=== PATIENT | female | born 1980 | race Caucasian/White ===

== ENCOUNTER → 2019-12-28 | Outpatient (CLI) | payer OTHER ==
[2019-12-28 12:12] LABS: BASO % 0.5 % (0.0-1.0); EOS # 0.1 10^3/uL (0.0-0.5); HEMATOCRIT 34.4 % (36.0-47.0); HEMOGLOBIN 10.6 g/dl (12.0-15.5); LYMPH # 1.7 10^3/uL (1.5-5.0); LYMPH % 20.4 % (24.0-44.0); MEAN CORPUSCULAR HEMOGLOBIN 19.5 pg (27.0-33.0); MEAN CORPUSCULAR HGB CONC 30.8 g/dl (32.0-36.5); MEAN CORPUSCULAR VOLUME 63.2 fl (80.0-96.0); MONO # 0.6 10^3/uL (0.0-0.8); MONO % 7.6 % (0.0-5.0); NEUTROPHILS # 5.9 10^3/uL (1.5-8.5); NEUTROPHILS % 70.1 % (36.0-66.0); PLATELET COUNT, AUTOMATED 201 10^3/uL (150-450); RED BLOOD COUNT 5.44 10^6/uL (4.00-5.40); WHITE BLOOD COUNT 8.4 10^3/uL (4.0-10.0)
[2019-12-28 12:15] LABS: ALBUMIN 3.6 GM/DL (3.2-5.2); ALT/SGPT 21 U/L (12-78); BILIRUBIN,TOTAL 0.5 MG/DL (0.2-1.0); BLOOD UREA NITROGEN 14 MG/DL (7-18); CALCIUM LEVEL 7.9 MG/DL (8.5-10.1); CARBON DIOXIDE LEVEL 29 MEQ/L (21-32); CHLORIDE LEVEL 105 MEQ/L (98-107); CREATININE FOR GFR 0.69 MG/DL (0.55-1.30); GLOMERULAR FILTRATION RATE > 60.0 (>58); GLUCOSE, FASTING 90 MG/DL (70-100); POTASSIUM SERUM 4.1 MEQ/L (3.5-5.1); SODIUM LEVEL 138 MEQ/L (136-145)
== END ==
LOC: M LAB 11:47
PROVIDERS: ATTEND Internal Medicine Gastroenterology
DX: K62.5 Hemorrhage of anus and rectum (principal)

== ENCOUNTER → 2020-01-05 | Outpatient (REF) | payer OTHER ==
[2020-01-05 16:35] LABS: INR 1.04; PROTHROMBIN TIME 13.3 SECONDS (11.8-14.0)
== END ==
LOC: M LAB REF 15:53
PROVIDERS: ATTEND Internal Medicine Gastroenterology
DX: K62.5 Hemorrhage of anus and rectum (principal)

== ENCOUNTER → 2020-01-14 | Outpatient (CLI) | payer OTHER ==
[~2020-01-14] MED LIST: CLAR10CA3 PO; NO ITAB PO
== END ==
LOC: M LABSMTC 09:42
PROVIDERS: ATTEND Anesthesiology
DX: Z01.812 Encounter for preprocedural laboratory examination (principal); Z11.59 Encounter for screening for other viral diseases
CPT/HCPCS: C9803; U0002

== ENCOUNTER 2020-01-17 08:53 | Day surgery (SDC) | payer OTHER ==
[~2020-01-17] VITALS: Ht 154.9 cm; Wt 68.5 kg
[~2020-01-17 08:53] MED LIST changes: +NS 1,000 ML IV ONE
[2020-01-17] MEDS ORDERED: propofoL 200 MG/20 ML VIAL As Ordered ONE (09:22)
[2020-01-17] MEDS ORDERED: LIDOCAINE 2% 100MG/5ML SDV (FOR ANES.) As Ordered ONE (09:23)
[2020-01-17] MEDS ORDERED: fentaNYL 100 MCG/2 ML INJECTION (J3010) As Ordered ONE (09:24)
--- NOTE | 2020-01-17 10:08 | ROOR ---
Patient Name: Kathy Johnson Procedure Date: 01/17/2020 9:47 AM Date of : 1980 Age: 39 Room: [facility] Gender: Female Note Status: Finalized Procedure: Upper GI endoscopy Indications: Hematochezia, Endoscopy to assess diarrhea in patient suspected of having disease of the small-bowel Providers: Huy LEZAMA MD Referring MD: Helena Peoples NP Requesting Provider: Medicines: Monitored Anesthesia Care Complications: No immediate complications. Procedure: Pre-Anesthesia Assessment: - The heart rate, respiratory rate, oxygen saturations, blood pressure, adequacy of pulmonary ventilation, and response to care were monitored throughout the procedure. The Endoscope was introduced through the mouth, and advanced to the second part of duodenum. The upper GI endoscopy was accomplished without difficulty. The patient tolerated the procedure well. Findings: The esophagus was normal. The stomach was normal. The examined duodenum was normal. Biopsies for histology were taken with a cold forceps in the second portion of the duodenum and in the third portion of the duodenum for evaluation of celiac disease. Impression: - Normal esophagus. - Normal stomach. - Normal examined duodenum. - Biopsies were taken with a cold forceps for evaluation of celiac disease. Recommendation: - Await pathology results. - Telephone endoscopist for pathology results in 2 weeks. Huy Lezama MD Huy LEZAMA MD 01/17/2020 10:07:46 AM Electronically signed by Huy LEZAMA MD Number of Addenda: 0 Note Initiated On: 01/17/2020 9:47 AM Estimated Blood Loss: Estimated blood loss: none.
--- NOTE | 2020-01-17 10:36 | ROOR ---
Patient Name: Kathy Johnson Procedure Date: 01/17/2020 9:49 AM Date of : 1980 Age: 39 Room: [facility] Gender: Female Note Status: Finalized Procedure: Colonoscopy Indications: Clinically significant diarrhea of unexplained origin, Hematochezia Providers: Huy LEZAMA MD Referring MD: Helena Peoples NP Requesting Provider: Medicines: Monitored Anesthesia Care Complications: No immediate complications. Procedure: Pre-Anesthesia Assessment: - The heart rate, respiratory rate, oxygen saturations, blood pressure, adequacy of pulmonary ventilation, and response to care were monitored throughout the procedure. The Colonoscope was introduced through the anus and advanced to 10 cm into the ileum. The colonoscopy was performed without difficulty. The patient tolerated the procedure well. The quality of the bowel preparation was good. Findings: The perianal and digital rectal examinations were normal. The terminal ileum appeared normal. Segmental mild inflammation characterized by congestion (edema), erythema and granularity was found from sigmoid to anus. Biopsies were taken with a cold forceps for histology. A 5 mm polyp was found in the rectum. The polyp was sessile. The polyp was removed with a cold snare. Resection and retrieval were complete. The exam was otherwise without abnormality on direct and retroflexion views. Impression: - Mild continuous inflammation was found from anus to mid sigmoid. (0 to 28 cm from verge) secondary to proctosigmoid colitis. Biopsied. - One 5 mm polyp in the rectum, removed with a cold snare. Resected and retrieved. - The colon examination was otherwise normal on direct and retroflexion views. - The examined portion of the ileum was normal. Recommendation: - Telephone endoscopist for pathology results in 2 weeks. - Await pathology results. Huy Lezama MD Huy LEZAMA MD 01/17/2020 10:36:09 AM Electronically signed by Huy LEZAMA MD Number of Addenda: 0 Note Initiated On: 01/17/2020 9:49 AM Estimated Blood Loss: Estimated blood loss: none.
[2020-01-17 10:44] VITALS: BP 98/66
== END 2020-01-17 10:44 | disposition home or self-care (01) ==
LOC: M OPP 08:53
PROVIDERS: ATTEND Internal Medicine Gastroenterology
DX: K63.89 Other specified diseases of intestine (principal); K62.1 Rectal polyp; K92.1 Melena; R19.7 Diarrhea, unspecified; Z91.041 Radiographic dye allergy status
CPT/HCPCS: 43239; 45380; 45385; 81025; 88305; J3010

== ENCOUNTER → 2020-02-10 | Outpatient (REF) | payer OTHER ==
[~2020-02-10] MED LIST changes: -NS 1,000 ML IV ONE
[2020-02-10 17:15] LABS: BASO # 0.1 10^3/uL (0.0-0.2); BASO % 0.6 % (0.0-1.0); EOS # 0.3 10^3/uL (0.0-0.5); EOS % 2.8 % (0.0-3.0); HEMOGLOBIN 10.2 g/dl (12.0-15.5); LYMPH # 2.2 10^3/uL (1.5-5.0); LYMPH % 23.2 % (24.0-44.0); MEAN CORPUSCULAR HEMOGLOBIN 19.9 pg (27.0-33.0); MEAN CORPUSCULAR HGB CONC 30.9 g/dl (32.0-36.5); MEAN CORPUSCULAR VOLUME 64.3 fl (80.0-96.0); MONO # 0.6 10^3/uL (0.0-0.8); MONO % 6.3 % (0.0-5.0); NEUTROPHILS # 6.4 10^3/uL (1.5-8.5); NEUTROPHILS % 66.7 % (36.0-66.0); PLATELET COUNT, AUTOMATED 223 10^3/uL (150-450); RED BLOOD COUNT 5.13 10^6/uL (4.00-5.40); WHITE BLOOD COUNT 9.6 10^3/uL (4.0-10.0)
[2020-02-10 17:51] LABS: ALBUMIN 3.4 GM/DL (3.2-5.2); ALT/SGPT 30 U/L (12-78); BILIRUBIN,TOTAL 0.7 MG/DL (0.2-1.0); BLOOD UREA NITROGEN 15 MG/DL (7-18); CALCIUM LEVEL 8.3 MG/DL (8.5-10.1); CARBON DIOXIDE LEVEL 29 MEQ/L (21-32); CHLORIDE LEVEL 107 MEQ/L (98-107); CREATININE FOR GFR 0.76 MG/DL (0.55-1.30); GLOMERULAR FILTRATION RATE > 60.0 (>58); GLUCOSE, FASTING 65 MG/DL (70-100); POTASSIUM SERUM 4.1 MEQ/L (3.5-5.1); SODIUM LEVEL 141 MEQ/L (136-145); TOTAL PROTEIN 6.6 GM/DL (6.4-8.2)
== END ==
LOC: M LABDRAWC 16:02
PROVIDERS: ATTEND Internal Medicine Gastroenterology
DX: K51.919 Ulcerative colitis, unspecified with unspecified complications (principal)

== ENCOUNTER → 2020-02-20 | Outpatient (REF) | payer OTHER ==
[~2020-02-20] MED LIST changes: +ACET-907 PO; +BALS75CA PO; +CEFD1CAP8 PO; +DICY1CAP8 PO; +FLAG500T PO; +FLON1SPR; +K-TA10TA2 PO; +LEVOTAB10 PO; +PANT40TA29 PO; +PRED10TA2 PO; +PRED20TA PO; +SUMA25TA3 PO
[2020-02-20 17:34] LABS: BASO % 0.4 % (0.0-1.0); EOS # 0.3 10^3/uL (0.0-0.5); EOS % 2.7 % (0.0-3.0); HEMATOCRIT 31.1 % (36.0-47.0); HEMOGLOBIN 9.5 g/dl (12.0-15.5); LYMPH # 2.2 10^3/uL (1.5-5.0); LYMPH % 20.5 % (24.0-44.0); MEAN CORPUSCULAR HEMOGLOBIN 19.5 pg (27.0-33.0); MEAN CORPUSCULAR HGB CONC 30.5 g/dl (32.0-36.5); MEAN CORPUSCULAR VOLUME 63.9 fl (80.0-96.0); MONO # 0.7 10^3/uL (0.0-0.8); MONO % 6.3 % (0.0-5.0); NEUTROPHILS # 7.4 10^3/uL (1.5-8.5); NEUTROPHILS % 69.6 % (36.0-66.0); PLATELET COUNT, AUTOMATED 229 10^3/uL (150-450); RED BLOOD COUNT 4.87 10^6/uL (4.00-5.40); WHITE BLOOD COUNT 10.7 10^3/uL (4.0-10.0)
[2020-02-20 17:36] LABS: ALBUMIN 3.3 GM/DL (3.2-5.2); ALT/SGPT 34 U/L (12-78); BILIRUBIN,TOTAL 0.7 MG/DL (0.2-1.0); BLOOD UREA NITROGEN 13 MG/DL (7-18); CALCIUM LEVEL 8.6 MG/DL (8.5-10.1); CARBON DIOXIDE LEVEL 28 MEQ/L (21-32); CHLORIDE LEVEL 104 MEQ/L (98-107); CREATININE FOR GFR 0.65 MG/DL (0.55-1.30); GLOMERULAR FILTRATION RATE > 60.0 (>58); GLUCOSE, FASTING 84 MG/DL (70-100); POTASSIUM SERUM 3.4 MEQ/L (3.5-5.1); SODIUM LEVEL 138 MEQ/L (136-145); TOTAL PROTEIN 6.7 GM/DL (6.4-8.2)
[2020-02-23 16:08] LABS: ANCA-ATYPICAL <1:20 titer (Neg:<1:20); CYTOPLASMIC NEUTROP AB ANCA-C <1:20 titer (Neg:<1:20); PERINUCLEAR AB ANCA-P <1:20 titer (Neg:<1:20)
== END ==
LOC: M LABDRAWC 16:11
PROVIDERS: ATTEND Internal Medicine Gastroenterology
DX: K51.318 Ulcerative (chronic) rectosigmoiditis with other complication (principal)

== ENCOUNTER 2020-02-21 16:53 | Emergency (ER) | payer OTHER ==
[~2020-02-21] VITALS: Ht 154.9 cm; Wt 68.9 kg
[~2020-02-21 16:53] MED LIST changes: -ACET-907 PO; -BALS75CA PO; -CEFD1CAP8 PO; -DICY1CAP8 PO; -FLAG500T PO; -FLON1SPR; -K-TA10TA2 PO; -LEVOTAB10 PO; -PANT40TA29 PO; -PRED10TA2 PO; -PRED20TA PO; -SUMA25TA3 PO
[2020-02-21] MEDS ORDERED: NS 1,000 ML IV ONE (17:15)
[2020-02-21 17:40] LABS: BASO % 0.3 % (0.0-1.0); EOS # 0.2 10^3/uL (0.0-0.5); HEMATOCRIT 31.7 % (36.0-47.0); HEMOGLOBIN 9.8 g/dl (12.0-15.5); LYMPH # 1.8 10^3/uL (1.5-5.0); LYMPH % 16.6 % (24.0-44.0); MEAN CORPUSCULAR HEMOGLOBIN 19.5 pg (27.0-33.0); MEAN CORPUSCULAR HGB CONC 30.9 g/dl (32.0-36.5); MONO # 0.8 10^3/uL (0.0-0.8); MONO % 7.1 % (0.0-5.0); NEUTROPHILS # 7.9 10^3/uL (1.5-8.5); NEUTROPHILS % 73.6 % (36.0-66.0); PLATELET COUNT, AUTOMATED 237 10^3/uL (150-450); RED BLOOD COUNT 5.03 10^6/uL (4.00-5.40); WHITE BLOOD COUNT 10.8 10^3/uL (4.0-10.0)
[2020-02-21 18:02] LABS: ALBUMIN 3.4 GM/DL (3.2-5.2); ALT/SGPT 31 U/L (12-78); BILIRUBIN,DIRECT 0.2 MG/DL (0.0-0.2); BILIRUBIN,TOTAL 0.5 MG/DL (0.2-1.0); CK-MB VALUE MASS < 1.0 NG/ML (<3.6); CPK CREATINE PHOSPHOKINASE 48 U/L (26-192); FREE T4 1.01 NG/DL (0.76-1.46); LIPASE 169 U/L (73-393); MB/CK RELATIVE INDEX 2.08 (< OR =4); NT-PRO BNP 68 PG/ML (<125); TOTAL PROTEIN 7.2 GM/DL (6.4-8.2); TROPONIN I < 0.02 NG/ML (< 0.10)
[2020-02-21 18:07] LABS: INR 1.1; PROTHROMBIN TIME 13.9 SECONDS (11.8-14.0)
[2020-02-21 18:08] LABS: PARTIAL THROMBOPLASTIN TIME 35.6 SECONDS (25.0-38.4)
[2020-02-21 18:10] LABS: D-DIMER QUANT 1688.85 ng/ml (<500)
[2020-02-21] MEDS ORDERED: ISOVUE-370 76% 100ML VIAL As Ordered ONE (18:23)
--- NOTE | 2020-02-21 19:00 | REPVR ---
PROCEDURE INFORMATION: Exam: CT Angiography Chest With Contrast Exam date and time: 02/21/2020 6:28 PM Age: 39 years old Clinical indication: Shortness of breath; Additional info: SOB, elevated dimer, RO pe TECHNIQUE: Imaging protocol: Computed tomographic angiography of the chest with intravenous contrast. 3D rendering: MIP and/or 3D reconstructed images were created by the technologist. Radiation optimization: All CT scans at this facility use at least one of these dose optimization techniques: automated exposure control; mA and/or kV adjustment per patient size (includes targeted exams where dose is matched to clinical indication); or iterative reconstruction. Contrast material: ISOVUE 370; Contrast volume: 75 ml; Contrast route: INTRAVENOUS (IV); COMPARISON: CR Chest, 2 view PA, Lat 02/21/2020 5:57 PM FINDINGS: Pulmonary arteries: No CT evidence of acute pulmonary emboli. Aorta: No CT evidence of acute aortic dissection, aneurysm or acute intramural thoracic aortic hematoma. Lungs: Both lungs are well-aerated. No evidence of acute pneumonia or pneumothorax. Pleural space: No pleural effusions. Heart: The heart size is normal. No evidence of coronary artery calcification. Lymph nodes: No significant mediastinal lymphadenopathy. Bones/joints: Unremarkable. No acute fracture. Soft tissues: Unremarkable. IMPRESSION: 1. No CT evidence of acute pulmonary emboli. 2. No CT evidence of acute aortic dissection, aneurysm or acute intramural thoracic aortic hematoma. 3. Both lungs are well-aerated. No evidence of acute pneumonia or pneumothorax. 4. The heart size is normal. No evidence of coronary artery calcification. Electronically signed by: Jimmy Victoria On 02/21/2020 18:59:38 PM
[2020-02-21 19:35] VITALS: BP 106/73
--- NOTE | 2020-02-21 22:55 | REP ---
TWO-VIEW CHEST: REASON: Chest pain. COMPARISON: No priors. FINDINGS: The superior mediastinal structures are midline. The cardiac silhouette is unremarkable in size, shape, and position. The diaphragmatic surfaces of the lungs are regular, and the costophrenic angles are clear. The pulmonary sheth are clear. The imaged osseous structures are intact. IMPRESSION: There is no acute cardiopulmonary disease. Electronically Signed by Demetrio Priest DO 02/22/2020 01:23 P
--- NOTE | 2020-02-22 08:19 | ECGEPIP ---
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
== END 2020-02-21 19:37 | disposition home or self-care (01) ==
LOC: M ED 16:53
DX: R07.9 Chest pain, unspecified (principal); R00.0 Tachycardia, unspecified; Z79.899 Other long term (current) drug therapy; Z91.041 Radiographic dye allergy status
CPT/HCPCS: 71046; 71275; 80047; 80076; 82550; 82553; 83690; 83880; 84439; 84443; 84484; 84702; 85025; 85379; 85610; 85730; 93005; 96360; 99284; Q9967

== ENCOUNTER → 2020-02-24 | Outpatient (REF) | payer OTHER ==
[~2020-02-24] MED LIST changes: +ACET-907 PO; +BALS75CA PO; +CEFD1CAP8 PO; +DICY1CAP8 PO; +FLAG500T PO; +FLON1SPR; +K-TA10TA2 PO; +LEVOTAB10 PO; +PANT40TA29 PO; +PRED10TA2 PO; +PRED20TA PO; +SUMA25TA3 PO
[2020-02-24 11:58] LABS: BASO % 0.3 % (0.0-1.0); EOS # 0.3 10^3/uL (0.0-0.5); HEMATOCRIT 29.4 % (36.0-47.0); LYMPH # 1.7 10^3/uL (1.5-5.0); LYMPH % 17.5 % (24.0-44.0); MEAN CORPUSCULAR HEMOGLOBIN 19.4 pg (27.0-33.0); MEAN CORPUSCULAR HGB CONC 30.6 g/dl (32.0-36.5); MEAN CORPUSCULAR VOLUME 63.4 fl (80.0-96.0); MONO # 0.7 10^3/uL (0.0-0.8); MONO % 7.5 % (0.0-5.0); NEUTROPHILS # 6.8 10^3/uL (1.5-8.5); NEUTROPHILS % 71.3 % (36.0-66.0); PLATELET COUNT, AUTOMATED 228 10^3/uL (150-450); RED BLOOD COUNT 4.64 10^6/uL (4.00-5.40); WHITE BLOOD COUNT 9.5 10^3/uL (4.0-10.0)
== END ==
LOC: M SFHCCLAY 08:18
PROVIDERS: ATTEND Nurse Practitioner Family
DX: R10.32 Left lower quadrant pain (principal); K59.00 Constipation, unspecified

== ENCOUNTER → 2020-02-24 | Outpatient (CLI) | payer OTHER ==
--- NOTE | 2020-02-24 08:57 | REP ---
Acute abdominal series: Three views. History: Left lower quadrant abdomen pain. Comparison chest x-ray February 21, 2020. Findings: Upright chest radiograph shows no evidence of infiltrate. There is however slight blunting of the left lateral pleural angle and minimal discoid atelectasis is present in the left base along the diaphragm. No free subdiaphragmatic air is seen. The heart is not enlarged. Supine and upright views of the abdomen show a normal bowel gas pattern with air and stool in a nondistended colon. No small bowel dilation is seen. Psoas margins and flank stripes are intact. No mass, organomegaly, or pathologic calcification is seen. Impression: New blunting left lateral pleural angle and plate-like atelectasis left lung base. Otherwise negative abdominal series. Electronically Signed by Marco Jennings MD 02/24/2020 08:48 A
== END ==
LOC: M CLY 08:11
PROVIDERS: ATTEND Nurse Practitioner Family
DX: R10.32 Left lower quadrant pain (principal); J98.11 Atelectasis

== ENCOUNTER → 2020-02-27 | Outpatient (CLI) | payer OTHER ==
[~2020-02-27] MED LIST changes: -ACET-907 PO; -BALS75CA PO; -CEFD1CAP8 PO; -DICY1CAP8 PO; -FLAG500T PO; -FLON1SPR; -K-TA10TA2 PO; -LEVOTAB10 PO; -PANT40TA29 PO; -PRED10TA2 PO; -PRED20TA PO; -SUMA25TA3 PO
--- NOTE | 2020-02-27 13:24 | REP ---
MRCP: MRCP is accomplished utilizing multiple sequences which are heavily T2-weighted in the axial and coronal planes. MIP reconstruction images are performed. There is no intrahepatic or extrahepatic biliary dilatation. The intrahepatic and extrahepatic bile ducts are normal in caliber. Maximum diameter of the common bile duct is 5 mm. Gallbladder is unremarkable. There is no evidence of cholelithiasis or choledocholithiasis. Pancreatic duct is normal in caliber. The remaining visualized abdominal structures are unremarkable. I see no adenopathy or free fluid in the abdomen. . IMPRESSION: Unremarkable MRCP exam. Electronically Signed by Deion Dinero MD 02/27/2020 07:31 P
== END ==
LOC: M RAD 08:42
PROVIDERS: ATTEND Internal Medicine Gastroenterology
DX: K83.01 Primary sclerosing cholangitis (principal)

== ENCOUNTER → 2020-03-02 | Outpatient (REF) | payer OTHER ==
[2020-03-02 17:09] LABS: ALBUMIN 3.3 GM/DL (3.2-5.2); ALT/SGPT 14 U/L (12-78); BILIRUBIN,TOTAL 0.4 MG/DL (0.2-1.0); BLOOD UREA NITROGEN 13 MG/DL (7-18); CALCIUM LEVEL 8.5 MG/DL (8.5-10.1); CARBON DIOXIDE LEVEL 29 MEQ/L (21-32); CHLORIDE LEVEL 107 MEQ/L (98-107); CREATININE FOR GFR 0.65 MG/DL (0.55-1.30); GLOMERULAR FILTRATION RATE > 60.0 (>58); GLUCOSE, FASTING 88 MG/DL (70-100); POTASSIUM SERUM 3.7 MEQ/L (3.5-5.1); SODIUM LEVEL 138 MEQ/L (136-145); TOTAL PROTEIN 6.8 GM/DL (6.4-8.2)
[2020-03-02 17:15] LABS: CHOLESTEROL RISK RATIO 4.562 (<5); FREE T4 1.04 NG/DL (0.76-1.46); THYROID STIMULATING HORMONE 1.65 uIU/ML (0.358-3.740)
== END ==
LOC: M SFHCCLAY 09:49
PROVIDERS: ATTEND Nurse Practitioner Family
DX: K52.9 Noninfective gastroenteritis and colitis, unspecified (principal); G43.709 Chronic migraine without aura, not intractable, without status migrainosus; D56.3 Thalassemia minor; Z13.220 Encounter for screening for lipoid disorders

== ENCOUNTER → 2020-03-06 | Outpatient (REF) | payer OTHER ==
[~2020-03-06] MED LIST changes: +ACET-907 PO; +BALS75CA PO; +FLON1SPR; +LEVOTAB10 PO; +PRED20TA PO; +SUMA25TA3 PO
[2020-03-07 12:29] LABS: BASO # 0.1 10^3/uL (0.0-0.2); BASO % 0.5 % (0.0-1.0); EOS # 0.7 10^3/uL (0.0-0.5); EOS % 6.2 % (0.0-3.0); HEMATOCRIT 30.9 % (36.0-47.0); HEMOGLOBIN 9.4 g/dl (12.0-15.5); LYMPH # 2.4 10^3/uL (1.5-5.0); LYMPH % 22.9 % (24.0-44.0); MEAN CORPUSCULAR HEMOGLOBIN 19.3 pg (27.0-33.0); MEAN CORPUSCULAR HGB CONC 30.4 g/dl (32.0-36.5); MEAN CORPUSCULAR VOLUME 63.4 fl (80.0-96.0); MONO # 0.7 10^3/uL (0.0-0.8); NEUTROPHILS # 6.6 10^3/uL (1.5-8.5); PLATELET COUNT, AUTOMATED 268 10^3/uL (150-450); RED BLOOD COUNT 4.87 10^6/uL (4.00-5.40); WHITE BLOOD COUNT 10.5 10^3/uL (4.0-10.0)
== END ==
LOC: M SFHCCLAY 15:23
PROVIDERS: ATTEND Nurse Practitioner Family
DX: D56.3 Thalassemia minor (principal)

== ENCOUNTER 2020-03-22 18:37 | Inpatient (IN) | payer OTHER ==
[~2020-03-22] VITALS: Ht 154.9 cm; Wt 65.4 kg
[~2020-03-22 18:37] MED LIST changes: -ACET-907 PO; -BALS75CA PO; -FLON1SPR; -LEVOTAB10 PO; -PRED20TA PO; -SUMA25TA3 PO
[2020-03-22] MEDS ORDERED: NS 1,000 ML IV ONE (20:00)
[2020-03-22 20:37] LABS: BASO % 0.1 % (0.0-1.0); EOS % 0.1 % (0.0-3.0); HEMATOCRIT 29.2 % (36.0-47.0); LYMPH # 1.6 10^3/uL (1.5-5.0); LYMPH % 9.2 % (24.0-44.0); MEAN CORPUSCULAR HEMOGLOBIN 18.9 pg (27.0-33.0); MEAN CORPUSCULAR HGB CONC 30.8 g/dl (32.0-36.5); MEAN CORPUSCULAR VOLUME 61.2 fl (80.0-96.0); MONO # 0.7 10^3/uL (0.0-0.8); MONO % 4.1 % (0.0-5.0); NEUTROPHILS # 14.7 10^3/uL (1.5-8.5); NEUTROPHILS % 85.7 % (36.0-66.0); PLATELET COUNT, AUTOMATED 350 10^3/uL (150-450); RED BLOOD COUNT 4.77 10^6/uL (4.00-5.40); WHITE BLOOD COUNT 17.1 10^3/uL (4.0-10.0)
[2020-03-22 20:53] LABS: INR 1.16; PARTIAL THROMBOPLASTIN TIME 32.6 SECONDS (25.0-38.4); PROTHROMBIN TIME 14.5 SECONDS (11.8-14.0)
[2020-03-22] MEDS ORDERED: KCL 10MEQ/100ML SWI (KRUN) 10 MEQ in IV 1 EA IV ONE (21:00)
[2020-03-22] MEDS ORDERED: POTASSIUM CHLORIDE 10 MEQ SR TABLET PO ONE (21:00)
[2020-03-22 21:04] LABS: ALBUMIN 2.8 GM/DL (3.2-5.2); ALT/SGPT 18 U/L (12-78); BILIRUBIN,DIRECT < 0.1 MG/DL (0.0-0.2); BILIRUBIN,TOTAL 0.4 MG/DL (0.2-1.0); LIPASE 81 U/L (73-393); MAGNESIUM LEVEL 2.2 MG/DL (1.8-2.4); TOTAL PROTEIN 6.8 GM/DL (6.4-8.2)
[2020-03-22] MEDS ORDERED: DICYCLOMINE 10 MG CAP PO ONE (23:30)
[2020-03-23] MEDS ORDERED: LEVOTAB10 PO (00:48)
[2020-03-23] MEDS ORDERED: BALS75CA PO (00:48)
[2020-03-23] MEDS ORDERED: FLON1SPR (00:48)
[2020-03-23] MEDS ORDERED: SUMA25TA3 PO (00:48)
[2020-03-23] MEDS ORDERED: PRED20TA PO (00:48)
[2020-03-23] MEDS ORDERED: ACET-907 PO (00:49)
[2020-03-23] MEDS ORDERED: ACETAMINOPHEN TAB 650MG DOSE (2X325MG) PO PRN (02:00)
--- NOTE | 2020-03-23 02:24 | REPVR ---
PROCEDURE INFORMATION: Exam: CT Abdomen And Pelvis Without Contrast Exam date and time: 03/23/2020 1:47 AM Age: 39 years old Clinical indication: Abdominal pain; Generalized TECHNIQUE: Imaging protocol: Computed tomography of the abdomen and pelvis without contrast. Radiation optimization: All CT scans at this facility use at least one of these dose optimization techniques: automated exposure control; mA and/or kV adjustment per patient size (includes targeted exams where dose is matched to clinical indication); or iterative reconstruction. COMPARISON: MRI ABDOMEN WITHOUT CONTRAST 2020-02-27 09:31 FINDINGS: Heart: Low dense blood pool in the heart indicating anemia. Correlate with labs. Liver: Normal. No mass. Gallbladder and bile ducts: Normal. No calcified stones. No ductal dilation. Pancreas: Normal. No ductal dilation. Spleen: Normal. No splenomegaly. Adrenals: Normal. No mass. Kidneys and ureters: Normal. No hydronephrosis. Stomach and bowel: Abnormal colonic inflammation with wall thickening and pericolonic stranding. Excessive fluid in stool in the right hemicolon. Loss of the colonic haustra. Suspect inflammatory, or perhaps infectious bowel disease. Couple colonic diverticulum. Appendix: No evidence of appendicitis. Intraperitoneal space: Unremarkable. No free air. No significant fluid collection. Vasculature: Unremarkable. No abdominal aortic aneurysm. Lymph nodes: Unremarkable. No enlarged lymph nodes. Bladder: Unremarkable as visualized. Reproductive: Unremarkable as visualized. Bones/joints: Unremarkable. No acute fracture. Soft tissues: Unremarkable. IMPRESSION: 1. Abnormal colonic inflammation with wall thickening and pericolonic stranding. Excessive fluid in stool in the right hemicolon. Loss of the colonic haustra. Suspect inflammatory, or perhaps infectious bowel disease. 2. Low dense blood pool in the heart indicating anemia. Correlate with labs. Electronically signed by: uHy Conrad On 03/23/2020 02:24:04 AM
[2020-03-23] MEDS ORDERED: NS 1,000 ML IV ONE (02:30)
--- NOTE | 2020-03-23 02:33 | HPEPDOC ---
General Date of Admission Mar 23, 2020 at 01:47 Date of Service: Mar 23, 2020 Chief Complaint The patient is a 39-year-old female who presented to the emergency room with complaints of abdominal pain as well as persistent bloody diarrhea History of Present Illness Patient is a 39-year-old female with a past medical history of ulcerative colitis (Dx 01/[address] Bell) and thalassemia minor who has presented to the emergency room with persistent abdominal discomfort, crampy in nature, associated with bloody bowel movements. Patient reports that since She has been on several different medications to help alleviate her ulcerative colitis symptoms.. She has been on multiple medications prescribed by her net web application developer, however, was recently given prednisone 40 mg over the last 5 days. That have improved some of her symptoms.. However, since she has stopped her symptoms have recurred. Patient was that her abdominal pain occurs diffusely. She reports is very mild at a 2/10, described as crampy in nature.. She has been experiencing diarrhea and reports at least 5-10 bowel movements a day, described as bloody loose and mucoid. Patient denies any nausea or vomiting.. She has reported a fever at home today of 100.5. Patient denies any chest pain, shortness of breath. Reports no change in her baseline cough does not express any palpitations. Patient reports her appetite is poor. Home Medications Scheduled Balsalazide Sodium (Balsalazide Disodium) 750 Mg Capsule, 2,250 MG PO TID, (Reported) Levocetirizine Dihydrochloride (Levocetirizine Dihydrochloride) 5 Mg Tablet, 5 MG PO QHS, (Reported) Prednisone (Prednisone) 20 Mg Tablet, 20 MG PO DAILY, (Reported) LAST DOSE WAS THE FIRST DOSE OF 7 Scheduled PRN Acetaminophen (Tylenol) 325 Mg Tablet, 650 MG PO Q4H PRN for PAIN / FEVER, (Reported) Fluticasone Propionate (Flonase Allergy Relief) 9.9 Ml [place].susp, 1 SPRAY NA BID PRN for NASAL CONGESTION, (Reported) Sumatriptan Succinate (Sumatriptan Succinate) 25 Mg Tablet, 25 MG PO BID PRN for MIGRAINE, (Reported) Allergies Coded Allergies: No Known Allergies (Unverified , 03/22/20) Past Medical History Medical History Ulcerative colitis Thalassemia minor Surgical History Urethral reflux correction Tonsillectomy EGD and colonoscopy 01/2020 Family History - Father with a history of skin cancer - Mother with history of ulcerative colitis and sclerosing cholangitis Social History - Denies the use of tobacco or illicit drugs; reports social alcohol use - Denies recent travel or sick contacts - Lives with and 2 sons - 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; 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 Review of Systems Other systems 10 point review of systems complete, all negative otherwise stated in HPI Vital Signs - Vitals: BP [108/67], HR [87], RR [18], Sat [100%RA], Temp [98.9F] - General: Lying in bed, No acute distress, Speaking in full sentences, AAOx3 - HEENT: NC, AT, PERRLA, EOMI - CVS: RRR, +S1S2, - Murmurs / rubs / gallops - Lungs: Fair air entry bilaterally, Clear to auscultation, No wheezing / rales / rhonchi - Abdomen: Soft, Non-distended, Non-tender, + Bowel sounds x 4 - Extremities: + PPx4, No lower extremity edema, No calf tenderness - Neuro: No focal motor or sensory deficit - Skin: No visible rashes Laboratory Data Labs 24H Laboratory Tests 2 03/22/20 20:10: Immature Granulocyte % (Auto) 0.8, Neutrophils (%) (Auto) 85.7H, Lymphocytes (%) (Auto) 9.2L, Monocytes (%) (Auto) 4.1, Eosinophils (%) (Auto) 0.1, Basophils (%) (Auto) 0.1, Neutrophils # (Auto) 14.7H, Lymphocytes # (Auto) 1.6, Monocytes # (Auto) 0.7, Eosinophils # (Auto) 0.0, Basophils # (Auto) 0.0, Nucleated Red Blood Cells % (auto) 0.0, Prothrombin Time 14.5H, Prothromb Time International Ratio 1.16, Activated Partial Thromboplast Time 32.6, Lactic Acid Level 1.1, Magnesium Level 2.2, Total Bilirubin 0.4, Direct Bilirubin < 0.1, Aspartate Amino Transf (AST/SGOT) 11, Alanine Aminotransferase (ALT/SGPT) 18, Alkaline Norbert sphatase 98, C-Reactive Protein, Quantitative 11.20H, Total Protein 6.8, Albumin 2.8L, Albumin/Globulin Ratio 0.7L, Lipase 81 03/22/20 20:11: POC Glucose (Misc Panel) 119H, POC Sodium (Misc Panel) 140, POC Potassium (Misc Panel) 2.7*L, POC Chloride (Misc Panel) 97L, POC Total CO2 (Misc Panel) 30.0H, POC Blood Urea Nitrogen (Misc Panel 9, POC Ionized Calcium (Misc Panel) 4.4L, POC Creatinine (Misc Panel) 0.6, POC Hematocrit (Misc Panel) 29.0L 03/22/20 20:13: POC Beta HCG, Quantitative < 5.0 03/22/20 23:44: POC Glucose (Misc Panel) 99, POC Sodium (Misc Panel) 141, POC Potassium (Misc Panel) 2.9*L, POC Chloride (Misc Panel) 100, POC Total CO2 (Misc Panel) 28.0H, POC Blood Urea Nitrogen (Misc Panel 7L, POC Ionized Calcium (Misc Panel) 4.4L, POC Creatinine (Misc Panel) 0.6, POC Hematocrit (Misc Panel) 24.0L CBC/BMP Laboratory Tests 03/22/20 20:10 Microbiology Microbiology 03/22/20 Gastrointestinal Tract Panel (PCR), Received Pending 03/22/20 Gastrointestinal Tract Panel (PCR) - Final, Complete Plan / VTE VTE Prophylaxis Ordered?: Yes Plan Plan Abdominal cramps / Blood diarrhea - likely 2/2 Ulcerative colitis flare - Patient presented to the emergency room with complaints of abdominal cramping with persistent loose, bloody diarrhea - She is hemodynamically stable and afebrile - Will check ESR / CRP - Will order CT abdomen / pelvis - Will start IV fluid hydration and corticosteroids - Will continue clear liquid diet only for now - Pain control with dicyclomine / Zofran Leukocytosis - Possibly 2/2 recently used corticosteroids, possibly 2/2 infectious etiology - Patient is hemodynamically stable and afebrile - GI panel negative - Will check lactic acid / blood cultures / procalcitonin / - Will start Ceftriaxone and Flagyl Hypokalemia - Has been supplemented by IV and PO routes - Will supplement IV fluids with potassium Microcytic anemia - Will trend hemoglobin Gastrointestinal prophylaxis - Will start Protonix DVT prophylaxis - Will start TEDs/Sequentials EFRAÍN GONZALES MD Mar 23, 2020 02:33
[2020-03-23] MEDS: methylPREDNISolone 40MG 1ML VIAL IV SCH ×3 (02:39→18:14)
[2020-03-23 02:50] LABS: BASO % 0.1 % (0.0-1.0); EOS # 0.1 10^3/uL (0.0-0.5); EOS % 0.8 % (0.0-3.0); HEMOGLOBIN 7.1 g/dl (12.0-15.5); LYMPH # 2.3 10^3/uL (1.5-5.0); LYMPH % 16.3 % (24.0-44.0); MEAN CORPUSCULAR HEMOGLOBIN 18.8 pg (27.0-33.0); MEAN CORPUSCULAR HGB CONC 30.9 g/dl (32.0-36.5); MONO # 0.9 10^3/uL (0.0-0.8); MONO % 6.4 % (0.0-5.0); NEUTROPHILS # 10.8 10^3/uL (1.5-8.5); NEUTROPHILS % 75.7 % (36.0-66.0); PLATELET COUNT, AUTOMATED 287 10^3/uL (150-450); RED BLOOD COUNT 3.77 10^6/uL (4.00-5.40); WHITE BLOOD COUNT 14.3 10^3/uL (4.0-10.0)
[2020-03-23 02:51] VITALS: BP 111/78
[2020-03-23 02:53] LABS: ERYTHROCYTE SEDIMENTATION RATE 48 mm/hr (0-20)
[2020-03-23] MEDS: KCL 40MEQ in NS 1000ML 1,000 ML IV SCH ×2 (04:03→18:14)
[2020-03-23] MEDS ORDERED: FLUTICASONE PROP 0.05% NASAL SPRAY 16 GM (FLONASE) PRN (04:15)
[2020-03-23] MEDS ORDERED: SUMAtriptan SUCCINATE 25 MG TAB PO PRN (04:15)
[2020-03-23] MEDS: CETIRIZINE (ZyrTEC) 10 MG TAB PO SCH ×2 (04:19→21:46)
[2020-03-23] MEDS: metroNIDAZOLE 500 MG in IV 1 EA IV SCH ×3 (04:30→21:46)
[2020-03-23] MEDS: PANTOPRAZOLE 40MG VIAL (C9113 PER 1) IV SCH (05:08)
[2020-03-23 05:41] VITALS: BP 110/78
[2020-03-23] MEDS: cefTRIAXone SOD 1 GM in D5W MINI-BAG PLUS 50 ML IV SCH (06:04)
[2020-03-23 07:38] LABS: BASO % 0.1 % (0.0-1.0); EOS % 0.1 % (0.0-3.0); HEMATOCRIT 23.9 % (36.0-47.0); HEMOGLOBIN 7.4 g/dl (12.0-15.5); LYMPH # 1.2 10^3/uL (1.5-5.0); LYMPH % 7.7 % (24.0-44.0); MEAN CORPUSCULAR VOLUME 61.3 fl (80.0-96.0); MONO # 0.3 10^3/uL (0.0-0.8); NEUTROPHILS # 13.6 10^3/uL (1.5-8.5); NEUTROPHILS % 89.4 % (36.0-66.0); PLATELET COUNT, AUTOMATED 278 10^3/uL (150-450); WHITE BLOOD COUNT 15.2 10^3/uL (4.0-10.0)
--- NOTE | 2020-03-23 07:44 | ECGEPIP ---
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 Order Number: [id number] Reading MD: Bryan Chery Measurements Intervals [place] Rate: 81 P: 32 TN: 135 QRS: 41 QRSD: 91 T: 24 QT: 406 QTc: 473 Interpretive Statements SINUS RHYTHM RATE CHANGE COMPARED TO 02/21/20 Electronically Signed on 03-23-2020 7:44:13 EDT by Bryan Chery
[2020-03-23 08:06] LABS: ALBUMIN 2.2 GM/DL (3.2-5.2); ALT/SGPT 13 U/L (12-78); BILIRUBIN,TOTAL 0.3 MG/DL (0.2-1.0); BLOOD UREA NITROGEN 6 MG/DL (7-18); CALCIUM LEVEL 7.5 MG/DL (8.5-10.1); CARBON DIOXIDE LEVEL 28 MEQ/L (21-32); CHLORIDE LEVEL 106 MEQ/L (98-107); CREATININE FOR GFR 0.55 MG/DL (0.55-1.30); GLOMERULAR FILTRATION RATE > 60.0 (>58); GLUCOSE, FASTING 132 MG/DL (70-100); MAGNESIUM LEVEL 1.9 MG/DL (1.8-2.4); POTASSIUM SERUM 3.4 MEQ/L (3.5-5.1); SODIUM LEVEL 144 MEQ/L (136-145); TOTAL PROTEIN 5.4 GM/DL (6.4-8.2)
--- NOTE | 2020-03-23 08:50 | REP ---
REASON: Abdominal pain. History of ulcerative colitis. COMPARISON: 02/24/2020. FINDINGS: Supine and upright views of the abdomen show the intestinal gas pattern to be nonspecific. Gas and stool is seen throughout the colon within the rectosigmoid region. The organ silhouettes insofar as delineated appear unremarkable. No abdominal calcific densities are seen within the abdomen or pelvis. The accompanying single frontal view of the chest shows clearing of the previously present slight left basilar opacity. IMPRESSION: Nonspecific intestinal gas pattern. Electronically Signed by Demetrio Priest DO 03/23/2020 11:24 A
--- NOTE | 2020-03-23 11:17 | IPNPDOC ---
Text Note Date of Service The patient was seen on 03/23/20. NOTE Subjective: complains of crampy abdominal pain mostly at night with diarrhea says its brown liquids could not say if it had any blood in it or not. Physical Exam: Vitals: As below. General: Lying in bed, No acute distress, Speaking in full sentences, AAOx3 HEENT: NC, AT, PERRLA, EOMI, moist mucous membranes CVS: RRR, +S1S2, - Murmurs / rubs / gallops Lungs: Fair air entry bilaterally, Clear to auscultation, No wheezing / rales / rhonchi Abdomen: Soft, Non-distended,tender in the lower part, + Bowel sounds x 4, No rigidity, No guarding. Extremities: + PPx4, No lower extremity edema, No calf tenderness Neuro: No focal motor or sensory deficit Skin: No visible rashes Labs and Radiology: Reviewed. Assessment and Plan: Patient is a 39-year-old female with a past medical history of ulcerative colitis (Dx 01/[address] Bell) and thalassemia minor who has presented to the emergency room with persistent abdominal discomfort, crampy in nature, associated with bloody bowel movements. Patient reports that since She has been on several different medications to help alleviate her ulcerative colitis symptoms.. She has been on multiple medications prescribed by her care trainer, however, was recently given prednisone 40 mg over the last 5 days. That did improve some of her symptoms. However, since she has stopped her symptoms have recurred. Ulcerative colitis flare IV fluid hydration and IV corticosteroids Will continue clear liquid diet only for now Pain control with dicyclomine / Zofran Ceftriaxone and metronidazole. Leukocytosis - Possibly 2/2 recently used corticosteroids, possibly 2/2 infectious etiology GI panel negative blood cultures / procalcitonin pending. Ceftriaxone and Flagyl Hypokalemia continue IV potassium supplementation Acute on CHronic Microcytic anemia/ Thalassemia Minor HH at 7.4. Will transfuse if drops below 7. probably due to GIB, chronic disease on the back ground of thalassemia. will check iron profile Gastrointestinal prophylaxis Protonix DVT prophylaxis TEDs/Sequentials VS,Fishbone, I+O VS, Fishbone, I+O Laboratory Tests 03/22/20 20:10 03/23/20 02:38 03/23/20 07:04 Vital Signs Date Time Temp Pulse Resp B/P (MAP) Pulse Ox O2 Delivery O2 Flow Rate FiO2 03/23/20 05:41 97.8 96 20 110/78 (89) 98 Room Air I&O- Last 24 Hours up to 6 AM 03/23/20 06:00 Intake Total 2440 ml Balance 2440 ml VINCE MTZ MD Mar 23, 2020 11:17
[2020-03-23 12:26] LABS: FERRITIN 228 NG/ML (8-252)
[2020-03-23 14:00] VITALS: BP 99/63
[2020-03-23 20:00] VITALS: BP 102/66
[2020-03-23] MEDS: DICYCLOMINE 10 MG CAP PO PRN (21:46)
[2020-03-24] MEDS: methylPREDNISolone 40MG 1ML VIAL IV SCH ×3 (02:53→20:26)
[2020-03-24] MEDS: metroNIDAZOLE 500 MG in IV 1 EA IV SCH (05:04)
[2020-03-24] MEDS: KCL 40MEQ in NS 1000ML 1,000 ML IV SCH (05:04)
[2020-03-24 05:47] VITALS: BP 110/75
[2020-03-24] MEDS: cefTRIAXone SOD 1 GM in D5W MINI-BAG PLUS 50 ML IV SCH (06:18)
[2020-03-24] MEDS: PANTOPRAZOLE 40MG VIAL (C9113 PER 1) IV SCH (06:18)
[2020-03-24 06:33] LABS: HEMATOCRIT 24.4 % (36.0-47.0); HEMOGLOBIN 7.5 g/dl (12.0-15.5); MEAN CORPUSCULAR HEMOGLOBIN 18.9 pg (27.0-33.0); MEAN CORPUSCULAR HGB CONC 30.7 g/dl (32.0-36.5); MEAN CORPUSCULAR VOLUME 61.5 fl (80.0-96.0); PLATELET COUNT, AUTOMATED 309 10^3/uL (150-450); RED BLOOD COUNT 3.97 10^6/uL (4.00-5.40); WHITE BLOOD COUNT 13.7 10^3/uL (4.0-10.0)
[2020-03-24 06:57] LABS: BLOOD UREA NITROGEN 10 MG/DL (7-18); CALCIUM LEVEL 7.9 MG/DL (8.5-10.1); CARBON DIOXIDE LEVEL 27 MEQ/L (21-32); CHLORIDE LEVEL 111 MEQ/L (98-107); CREATININE FOR GFR 0.63 MG/DL (0.55-1.30); GLOMERULAR FILTRATION RATE > 60.0 (>58); GLUCOSE, FASTING 143 MG/DL (70-100); POTASSIUM SERUM 3.5 MEQ/L (3.5-5.1); SODIUM LEVEL 145 MEQ/L (136-145)
[2020-03-24 07:15] LABS: ATYPICAL LYMPH 1 % (0-5); HYPOCHROMASIA 2+; LYMPHOCYTES 9 % (16-44); MICROCYTOSIS 3+; MONOCYTES 1 % (0-5); NEUTROPHILS 86 % (28-66); PLATELET ESTIMATE NORMAL (NORMAL)
[2020-03-24 07:16] LABS: OVALOCYTES 2+; POIKILOCYTOSIS 2+; SCHISTOCYTES 2+; TEAR DROP CELLS 2+
[2020-03-24 14:00] VITALS: BP 108/74
--- NOTE | 2020-03-24 16:24 | IPNPDOC ---
Text Note Date of Service The patient was seen on 03/24/20. NOTE Subjective: Abdominal pain and diarrhea less. Tolerating soft diet. No fever or chills, complaining of swelling of fingers. Physical Exam: Vitals: As below. General: Lying in bed, No acute distress, Speaking in full sentences, AAOx3 HEENT: NC, AT, PERRLA, EOMI, moist mucous membranes CVS: RRR, +S1S2, - Murmurs / rubs / gallops Lungs: Fair air entry bilaterally, Clear to auscultation, No wheezing / rales / rhonchi Abdomen: Soft, Non-distended,tender in the lower part, + Bowel sounds x 4, No rigidity, No guarding. Extremities: + PPx4, No lower extremity edema, No calf tenderness Neuro: No focal motor or sensory deficit Skin: No visible rashes Labs and Radiology: Reviewed. Assessment and Plan: Patient is a 39-year-old female with a past medical history of ulcerative colitis (Dx 01/[address] Bell) and thalassemia minor who has presented to the emergency room with persistent abdominal discomfort, crampy in nature, associated with bloody bowel movements. Patient reports that since She has been on several different medications to help alleviate her ulcerative colitis symptoms.. She has been on multiple medications prescribed by her malt house supervisor, however, was recently given prednisone 40 mg over the last 5 days. That did improve some of her symptoms. However, since she has stopped her symptoms have recurred. Ulcerative colitis flare IV corticosteroids Soft , low residue diet. Pain control with dicyclomine / Zofran Ceftriaxone and metronidazole. Leukocytosis - Possibly 2/2 recently used corticosteroids, possibly 2/2 infec tious etiology GI panel negative blood cultures negative till date. procalcitonin at 0.13 not elevated. Ceftriaxone and Flagyl Hypokalemia replaced. Acute on Chronic Microcytic anemia/ Thalassemia Minor HH at 7.5. Will transfuse if drops below 7. probably due to GIB, chronic disease on the back ground of thalassemia. Ferritin not low. Gastrointestinal prophylaxis Protonix DVT prophylaxis TEDs/Sequentials VS,Fishbone, I+O VS, Fishbone, I+O Laboratory Tests 03/24/20 06:13 Vital Signs Date Time Temp Pulse Resp B/P (MAP) Pulse Ox O2 Delivery O2 Flow Rate FiO2 03/24/20 05:47 97.9 79 18 110/75 (26) 97 Room Air I&O- Last 24 Hours up to 6 AM 03/24/20 05:59 Intake Total 1240 ml Balance 1240 ml VINCE MTZ MD Mar 24, 2020 07:58
[2020-03-24] MEDS: metroNIDAZOLE (FLAGYL) 500MG TABLET PO SCH ×2 (16:35→20:26)
[2020-03-24] MEDS ORDERED: FUROSEMIDE 20MG/2ML VIAL (J1940) IV ONE (17:00)
[2020-03-24] MEDS: ONDANSETRON 4MG/2ML VIAL IV PRN (17:42)
[2020-03-24 20:00] VITALS: BP 106/68
[2020-03-24] MEDS: CETIRIZINE (ZyrTEC) 10 MG TAB PO SCH (20:26)
[2020-03-25] MEDS: DICYCLOMINE 10 MG CAP PO PRN ×2 (03:09→18:29)
[2020-03-25 05:41] VITALS: BP 121/80
[2020-03-25] MEDS: PANTOPRAZOLE 40MG VIAL (C9113 PER 1) IV SCH (05:59)
[2020-03-25] MEDS: cefTRIAXone SOD 1 GM in D5W MINI-BAG PLUS 50 ML IV SCH (05:59)
[2020-03-25 06:53] LABS: HEMATOCRIT 23.8 % (36.0-47.0); HEMOGLOBIN 7.2 g/dl (12.0-15.5); MEAN CORPUSCULAR HEMOGLOBIN 18.6 pg (27.0-33.0); MEAN CORPUSCULAR HGB CONC 30.3 g/dl (32.0-36.5); MEAN CORPUSCULAR VOLUME 61.5 fl (80.0-96.0); PLATELET COUNT, AUTOMATED 315 10^3/uL (150-450); RED BLOOD COUNT 3.87 10^6/uL (4.00-5.40); WHITE BLOOD COUNT 13.3 10^3/uL (4.0-10.0)
[2020-03-25 07:06] LABS: BLOOD UREA NITROGEN 15 MG/DL (7-18); CALCIUM LEVEL 8.3 MG/DL (8.5-10.1); CARBON DIOXIDE LEVEL 30 MEQ/L (21-32); CHLORIDE LEVEL 107 MEQ/L (98-107); CREATININE FOR GFR 0.55 MG/DL (0.55-1.30); GLOMERULAR FILTRATION RATE > 60.0 (>58); GLUCOSE, FASTING 124 MG/DL (70-100); MAGNESIUM LEVEL 2.2 MG/DL (1.8-2.4); POTASSIUM SERUM 3.5 MEQ/L (3.5-5.1); SODIUM LEVEL 141 MEQ/L (136-145)
[2020-03-25 07:31] LABS: ATYPICAL LYMPH 7 % (0-5); LYMPHOCYTES 10 % (16-44); MONOCYTES 1 % (0-5); NEUTROPHILS 78 % (28-66); PLATELET ESTIMATE NORMAL (NORMAL)
[2020-03-25 07:32] LABS: ANISOCYTOSIS 1+; HYPOCHROMASIA 2+; MICROCYTOSIS 2+; OVALOCYTES 1+; POLYCHROMASIA 1+; SCHISTOCYTES 1+; TEAR DROP CELLS 1+
[2020-03-25] MEDS ORDERED: DICY1CAP8 PO (07:55)
[2020-03-25] MEDS ORDERED: FLAG500T PO (07:55)
[2020-03-25] MEDS ORDERED: PANT40TA29 PO (07:55)
[2020-03-25] MEDS ORDERED: CEFD1CAP8 PO (07:55)
[2020-03-25] MEDS ORDERED: PRED10TA2 PO (07:55)
--- NOTE | 2020-03-25 08:04 | DS.PDOC ---
Discharge Summary General Date of Admission Mar 23, 2020 at 01:47 Date of Discharge 03/25/20 Discharge Summary PROCEDURES PERFORMED DURING STAY: [None]. DISCHARGE DIAGNOSES: Acute Flare of Ulcerative colitis Acute on chronic anemia Hypokalemia Thalassemia Minor COMPLICATIONS/CHIEF COMPLAINT: Bloody Diarrhea, Ulcerative Colitis. HOSPITAL COURSE: Patient is a 39-year-old female with a past medical history of ulcerative colitis (Dx 01/[address] Bell) and thalassemia minor who has presented to the emergency room with persistent abdominal discomfort, crampy in nature, associated with bloody bowel movements. Patient reports that since She has been on several different medications to help alleviate her ulcerative colitis symptoms.. She has been on multiple medications prescribed by her school traffic supervisor, however, was recently given prednisone 40 mg over the last 5 days. That did improve some of her symptoms. However, since she has stopped her symptoms have recurred. Ulcerative colitis flare s/p IV corticosteroids Soft , low residue diet. Pain control with dicyclomine Prednisone taper on discharge. finish course of antibiotics Patient has follow up appointment with Dr Perez school traffic supervisor in [place] on 04/04/20 Leukocytosis - Possibly 2/2 recently used corticosteroids, possibly 2/2 infectious etiology GI panel negative blood cultures negative till date. procalcitonin at 0.13 not elevated. will finish course with Cefdinir and Flagyl Hypokalemia replaced. Acute on Chronic Microcytic anemia/ Thalassemia Minor Will transfuse if drops below 7. probably due to GIB, chronic disease on the back ground of thalassemia. Ferritin not low. Gastrointestinal prophylaxis PPI DISCHARGE MEDICATIONS: Please see below. ALLERGIES: Please see below. PHYSICAL EXAMINATION ON DISCHARGE: VITAL SIGNS: Please see below. General: Lying in bed, No acute distress, Speaking in full sentences, AAOx3 HEENT: NC, AT, PERRLA, EOMI, moist mucous membranes CVS: RRR, +S1S2, - Murmurs / rubs / gallops Lungs: Fair air entry bilaterally, Clear to auscultation, No wheezing / rales / rhonchi Abdomen: Soft, Non-distended, tender in the left lower part, + Bowel sounds x 4, No rigidity, No guarding. Extremities: + PPx4, No lower extremity edema, No calf tenderness Neuro: No focal motor or sensory deficit Skin: No visible rashes LABORATORY DATA: Please see below. IMAGING: CT abdomen and pelvis without contrast. 1. Abnormal colonic inflammation with wall thickening and pericolonic stranding. Excessive fluid in stool in the right hemicolon. Loss of the colonic haustra. Suspect inflammatory, or perhaps infectious bowel disease. 2. Low dense blood pool in the heart indicating anemia. Correlate with labs. ACTIVITY: [As tolerated]. DIET: Low residue. DISCHARGE PLAN: Home DISCHARGE INSTRUCTIONS: Follow up PMD within 1 week Follow up with own Piler. DISCHARGE CONDITION: [Stable]. TIME SPENT ON DISCHARGE: 35 minutes. Vital Signs/I&Os Vital Signs Date Time Temp Pulse Resp B/P (MAP) Pulse Ox O2 Delivery O2 Flow Rate FiO2 03/25/20 05:41 97.9 62 20 121/80 (94) 97 Room Air I&O- Last 24 Hours up to 6 AM 03/25/20 06:00 Intake Total 3447 ml Output Total 0 ml Balance 3447 ml Laboratory Data Labs 24H Laboratory Tests 2 03/25/20 06:32: Neutrophils (%) (Auto) , Nucleated Red Blood Cells % (auto) 0.2H, Neutrophils 78H, Band Neutrophils 4, Lymphocytes (Manual) 10L, Monocytes (Manual) 1, Atypica l Lymphocytes 7H, Polychromasia 1+, Hypochromasia 2+, Anisocytosis 1+, Microcytosis 2+, Schistocytes 1+, Tear Drop Cells 1+, Ovalocytes 1+, Platelet Estimate NORMAL, Anion Gap 4L, Glomerular Filtration Rate > 60.0, Calcium Level 8.3L, Magnesium Level 2.2 CBC/BMP Laboratory Tests 03/25/20 06:32 Microbiology Microbiology 03/23/20 Blood Culture - Preliminary, Resulted No Growth after 48 hours. All Specime... 03/23/20 Blood Culture - Preliminary, Resulted No Growth after 48 hours. All Specime... 03/22/20 Gastrointestinal Tract Panel (PCR), Received Pending 03/22/20 Gastrointestinal Tract Panel (PCR) - Final, Complete Discharge Medications Scheduled Balsalazide Sodium (Balsalazide Disodium) 750 Mg Capsule, 2,250 MG PO TID, (Reported) Cefdinir (Cefdinir) 300 Mg Capsule, 1 CAP PO BID Levocetirizine Dihydrochloride (Levocetirizine Dihydrochloride) 5 Mg Tablet, 5 MG PO QHS, (Reported) Metronidazole (Flagyl) 500 Mg Tablet, 500 MG PO TID Pantoprazole Sodium (Pantoprazole Sodium) 40 Mg Tablet.dr, 1 TAB PO DAILY Prednisone (Prednisone) 10 Mg Tablet, 10 MG PO TAPER Take 4 tabs daily x 3 days, then 3 tabs daily x 3 days, then 2 tabs daily x 3 days, then 1 tab daily x 3 days and stop Scheduled PRN Acetaminophen (Tylenol) 325 Mg Tablet, 650 MG PO Q4H PRN for PAIN / FEVER, (Reported) Dicyclomine HCl (Dicyclomine HCl) 10 Mg Capsule, 10 MG PO Q8HP PRN for abdominal cramps Fluticasone Propionate (Flonase Allergy Relief) 9.9 Ml [place].susp, 1 SPRAY NA BID PRN for NASAL CONGESTION, (Reported) Sumatriptan Succinate (Sumatriptan Succinate) 25 Mg Tablet, 25 MG PO BID PRN for MIGRAINE, (Reported) Allergies Coded Allergies: No Known Allergies (Unverified , 03/22/20) VINCE MTZ MD Mar 25, 2020 08:04
[2020-03-25] MEDS: methylPREDNISolone 40MG 1ML VIAL IV SCH (09:24)
[2020-03-25] MEDS: ONDANSETRON 4MG/2ML VIAL IV PRN (09:24)
[2020-03-25] MEDS: metroNIDAZOLE (FLAGYL) 500MG TABLET PO SCH ×3 (09:25→20:26)
[2020-03-25 10:00] VITALS: BP 118/79
[2020-03-25] MEDS ORDERED: KETOROLAC 30 MG/ML 1ML VIAL IV ONE (10:00)
[2020-03-25 14:26] VITALS: BP 113/75
[2020-03-25] MEDS: ONDANSETRON 4 MG ORAL DISINTEGRATING TAB PO PRN (18:21)
[2020-03-25] MEDS: BALSALAZIDE PO SCH (18:56)
[2020-03-25 19:05] VITALS: BP 114/75
[2020-03-25 20:00] VITALS: BP 99/61
[2020-03-25] MEDS: CETIRIZINE (ZyrTEC) 10 MG TAB PO SCH (20:27)
[2020-03-25 20:52] LABS: HEMATOCRIT 24.4 % (36.0-47.0); HEMOGLOBIN 7.5 g/dl (12.0-15.5)
[2020-03-25] MEDS ORDERED: hydrOXYzine 50 MG TAB PO ONE (21:15)
[2020-03-25 22:00] VITALS: BP 102/60
[2020-03-26 05:11] LABS: BASO % 0.1 % (0.0-1.0); EOS # 0.1 10^3/uL (0.0-0.5); EOS % 0.5 % (0.0-3.0); HEMATOCRIT 24.4 % (36.0-47.0); HEMOGLOBIN 7.7 g/dl (12.0-15.5); LYMPH # 3.3 10^3/uL (1.5-5.0); LYMPH % 21.7 % (24.0-44.0); MEAN CORPUSCULAR HEMOGLOBIN 19.2 pg (27.0-33.0); MEAN CORPUSCULAR HGB CONC 31.6 g/dl (32.0-36.5); MEAN CORPUSCULAR VOLUME 60.8 fl (80.0-96.0); MONO # 1.1 10^3/uL (0.0-0.8); MONO % 6.9 % (0.0-5.0); NEUTROPHILS # 10.5 10^3/uL (1.5-8.5); NEUTROPHILS % 69.6 % (36.0-66.0); PLATELET COUNT, AUTOMATED 336 10^3/uL (150-450); RED BLOOD COUNT 4.01 10^6/uL (4.00-5.40); WHITE BLOOD COUNT 15.1 10^3/uL (4.0-10.0)
[2020-03-26 05:27] LABS: BLOOD UREA NITROGEN 13 MG/DL (7-18); CALCIUM LEVEL 7.9 MG/DL (8.5-10.1); CARBON DIOXIDE LEVEL 30 MEQ/L (21-32); CHLORIDE LEVEL 107 MEQ/L (98-107); CREATININE FOR GFR 0.68 MG/DL (0.55-1.30); GLOMERULAR FILTRATION RATE > 60.0 (>58); GLUCOSE, FASTING 87 MG/DL (70-100); MAGNESIUM LEVEL 2.1 MG/DL (1.8-2.4); POTASSIUM SERUM 3.3 MEQ/L (3.5-5.1); SODIUM LEVEL 143 MEQ/L (136-145)
[2020-03-26 06:00] VITALS: BP 119/76
[2020-03-26] MEDS: cefTRIAXone SOD 1 GM in D5W MINI-BAG PLUS 50 ML IV SCH (06:29)
[2020-03-26] MEDS: POTASSIUM CHLORIDE 10 MEQ SR TABLET PO SCH (08:57)
[2020-03-26] MEDS: PANTOPRAZOLE 40MG TAB (PROTONIX) PO SCH (08:57)
[2020-03-26] MEDS: metroNIDAZOLE (FLAGYL) 500MG TABLET PO SCH ×3 (08:57→20:53)
[2020-03-26] MEDS: ONDANSETRON 4 MG ORAL DISINTEGRATING TAB PO PRN ×3 (08:57→20:53)
[2020-03-26] MEDS: predniSONE 20 MG TAB PO SCH (08:57)
[2020-03-26] MEDS: BALSALAZIDE PO SCH ×3 (08:57→18:01)
--- NOTE | 2020-03-26 13:26 | IPNPDOC ---
Text Note Date of Service The patient was seen on 03/26/20. NOTE Subjective: Abdominal pain less. But again started watery diarrhea today. No blood in stool. Tolerating soft diet but nauseaous probably from the metronidazole. No fever or chills, Physical Exam: Vitals: As below. General: Lying in bed, No acute distress, Speaking in full sentences, AAOx3 HEENT: NC, AT, PERRLA, EOMI, moist mucous membranes CVS: RRR, +S1S2, - Murmurs / rubs / gallops Lungs: Fair air entry bilaterally, Clear to auscultation, No wheezing / rales / rhonchi Abdomen: Soft, Non-distended, nontender, + Bowel sounds x 4, No rigidity, No guarding. Extremities: + PPx4, No lower extremity edema, No calf tenderness Neuro: No focal motor or sensory deficit Skin: No visible rashes Labs and Radiology: Reviewed. Assessment and Plan: Patient is a 39-year-old female with a past medical history of ulcerative colitis (Dx 01/[address] Bell) and t halassemia minor who has presented to the emergency room with persistent abdominal discomfort, crampy in nature, associated with bloody bowel movements. Patient reports that since She has been on several different medications to help alleviate her ulcerative colitis symptoms.. She has been on multiple medications prescribed by her daycare manager, however, was recently given prednisone 40 mg over the last 5 days. That did improve some of her symptoms. However, since she has stopped her symptoms have recurred. Ulcerative colitis flare S/p IV corticosteroids, Now on oral prednisone. Soft , low residue diet. Pain control with dicyclomine / Zofran Ceftriaxone and metronidazole. Leukocytosis - Possibly 2/2 recently used corticosteroids, possibly 2/2 infectious etiology GI panel negative blood cultures negative till date. procalcitonin at 0.13 not elevated. Ceftriaxone and Flagyl Hypokalemia replaced. Acute on Chronic Microcytic anemia/ Thalassemia Minor HH at 7.7. Will transfuse if drops below 7. probably due to GIB, chronic disease on the back ground of thalassemia. Ferritin not low. Gastrointestinal prophylaxis Protonix DVT prophylaxis TEDs/Sequentials VS,Fishbone, I+O VS, Fishbone, I+O Laboratory Tests 03/25/20 20:36 03/26/20 04:52 Vital Signs Date Time Temp Pulse Resp B/P (MAP) Pulse Ox O2 Delivery O2 Flow Rate FiO2 03/26/20 06:00 98.2 75 18 119/76 (90) 99 Room Air I&O- Last 24 Hours up to 6 AM 03/26/20 06:00 Intake Total 960 ml Output Total 0 ml Balance 960 ml VINCE MTZ MD Mar 26, 2020 13:26
[2020-03-26 14:25] VITALS: BP 123/80
[2020-03-26 20:00] VITALS: BP 124/80
[2020-03-26] MEDS: CETIRIZINE (ZyrTEC) 10 MG TAB PO SCH (20:54)
[2020-03-26] MEDS: DICYCLOMINE 10 MG CAP PO PRN (20:54)
[2020-03-26] MEDS ORDERED: PILL CUTTER 1 EACH XX PRN (21:15)
[2020-03-27] VITALS: BP 122/76
[2020-03-27] MEDS ORDERED: RAMELTEON 8 MG TAB (ROZEREM) PO ONE (01:15)
[2020-03-27] MEDS: cefTRIAXone SOD 1 GM in D5W MINI-BAG PLUS 50 ML IV SCH (06:37)
[2020-03-27 07:18] LABS: BASO % 0.2 % (0.0-1.0); EOS # 0.1 10^3/uL (0.0-0.5); EOS % 0.6 % (0.0-3.0); HEMATOCRIT 25.2 % (36.0-47.0); HEMOGLOBIN 7.9 g/dl (12.0-15.5); LYMPH # 2.5 10^3/uL (1.5-5.0); LYMPH % 19.7 % (24.0-44.0); MEAN CORPUSCULAR HGB CONC 31.3 g/dl (32.0-36.5); MEAN CORPUSCULAR VOLUME 60.6 fl (80.0-96.0); MONO # 0.6 10^3/uL (0.0-0.8); MONO % 4.4 % (0.0-5.0); NEUTROPHILS # 9.5 10^3/uL (1.5-8.5); NEUTROPHILS % 73.9 % (36.0-66.0); PLATELET COUNT, AUTOMATED 316 10^3/uL (150-450); RED BLOOD COUNT 4.16 10^6/uL (4.00-5.40); WHITE BLOOD COUNT 12.9 10^3/uL (4.0-10.0)
[2020-03-27 07:37] LABS: BLOOD UREA NITROGEN 8 MG/DL (7-18); CALCIUM LEVEL 7.7 MG/DL (8.5-10.1); CARBON DIOXIDE LEVEL 34 MEQ/L (21-32); CHLORIDE LEVEL 103 MEQ/L (98-107); CREATININE FOR GFR 0.63 MG/DL (0.55-1.30); GLOMERULAR FILTRATION RATE > 60.0 (>58); GLUCOSE, FASTING 89 MG/DL (70-100); MAGNESIUM LEVEL 2.2 MG/DL (1.8-2.4); POTASSIUM SERUM 3.1 MEQ/L (3.5-5.1); SODIUM LEVEL 142 MEQ/L (136-145)
[2020-03-27 07:55] VITALS: BP 109/70
[2020-03-27] MEDS ORDERED: POTASSIUM CHLORIDE 10 MEQ SR TABLET PO ONE (08:00)
[2020-03-27] MEDS: NS 1,000 ML IV SCH ×2 (08:56→18:07)
[2020-03-27] MEDS: ONDANSETRON 4 MG ORAL DISINTEGRATING TAB PO PRN ×3 (08:56→21:22)
[2020-03-27] MEDS: POTASSIUM CHLORIDE 10 MEQ SR TABLET PO SCH (09:29)
[2020-03-27] MEDS: BALSALAZIDE PO SCH ×3 (09:30→18:07)
[2020-03-27] MEDS: PANTOPRAZOLE 40MG TAB (PROTONIX) PO SCH (09:30)
[2020-03-27] MEDS: metroNIDAZOLE (FLAGYL) 500MG TABLET PO SCH ×3 (09:32→21:22)
[2020-03-27] MEDS: predniSONE 20 MG TAB PO SCH (09:32)
--- NOTE | 2020-03-27 14:24 | IPNPDOC ---
Text Note Date of Service The patient was seen on 03/27/20. NOTE Subjective: Abd pain improving. Diarrhea starting to improve. Still with Nausea. No vomiting. No fever or chills, Physical Exam: Vitals: As below. General: Lying in bed, No acute distress, Speaking in full sentences, AAOx3 HEENT: NC, AT, PERRLA, EOMI, moist mucous membranes CVS: RRR, +S1S2, - Murmurs / rubs / gallops Lungs: Fair air entry bilaterally, Clear to auscultation, No wheezing / rales / rhonchi Abdomen: Soft, Non-distended, nontender, + Bowel sounds x 4, No rigidity, No guarding. Extremities: + PPx4, No lower extremity edema, No calf tenderness Neuro: No focal motor or sensory deficit Skin: No visible rashes Labs and Radiology: Reviewed. Assessment and Plan: Patient is a 39-year-old female with a past medical history of ulcerative colitis (Dx 01/[address] Bell) and thalassemia minor who has presented to the emergency room with persistent abdominal discomfort, crampy in nature, associated with bloody bowel movements. Patient reports that since She has been on several different medications to help alleviate her ulcerative colitis symptoms.. She has been on multiple medications prescribed by her forest pathologist, however, was recently given prednisone 40 mg over the last 5 days. That did improve some of her symptoms. However, since she has stopped her symptoms have recurred. Ulcerative colitis flare S/p IV corticosteroids, Now on oral prednisone; plan to start taper tomorrow. Soft , low residue diet. Pain control with dicyclomine / Zofran Ceftriaxone and metronidazole. Leukocytosis - Possibly 2/2 recently used corticosteroids, possibly 2/2 infectious etiology GI panel negative blood cultures negative till date. procalcitonin at 0.13 not elevated. Ceftriaxone and Flagyl Hypokalemia replaced Acute on Chronic Microcytic anemia/ Thalassemia Minor HH at 7.7. Will transfuse if drops below 7. probably due to GIB, chronic disease on the back ground of thalassemia. Ferritin not low. Gastrointestinal prophylaxis Protonix Insomnia - Ambien prn DVT prophylaxis TEDs/Sequentials Discussed with pt/parents over phone. Plan for d/c in the next 24hr if continues to improve. VS,Fishbone, I+O VS, Fishbone, I+O Laboratory Tests 03/27/20 06:34 Vital Signs Date Time Temp Pulse Resp B/P (MAP) Pulse Ox O2 Delivery O2 Flow Rate FiO2 03/27/20 07:55 98.2 85 18 109/70 (83) 97 Room Air I&O- Last 24 Hours up to 6 AM 03/27/20 06:00 Intake Total 1480 ml Balance 1480 ml KENDRA BOO MD Mar 27, 2020 14:23
[2020-03-27 16:00] VITALS: BP 109/62
[2020-03-27 20:00] VITALS: BP 112/69
[2020-03-27] MEDS ORDERED: zolPIDEM TARTRATE 5 MG TAB PO SCH (21:00)
[2020-03-27] MEDS: CETIRIZINE (ZyrTEC) 10 MG TAB PO SCH (21:22)
[2020-03-28 03:00] VITALS: BP 116/75
[2020-03-28] MEDS: cefTRIAXone SOD 1 GM in D5W MINI-BAG PLUS 50 ML IV SCH (06:49)
[2020-03-28 08:02] LABS: BASO % 0.1 % (0.0-1.0); EOS # 0.1 10^3/uL (0.0-0.5); EOS % 0.9 % (0.0-3.0); HEMATOCRIT 24.2 % (36.0-47.0); HEMOGLOBIN 7.5 g/dl (12.0-15.5); LYMPH # 2.6 10^3/uL (1.5-5.0); LYMPH % 22.8 % (24.0-44.0); MEAN CORPUSCULAR HEMOGLOBIN 18.9 pg (27.0-33.0); MEAN CORPUSCULAR VOLUME 61.1 fl (80.0-96.0); MONO # 0.6 10^3/uL (0.0-0.8); MONO % 5.4 % (0.0-5.0); NEUTROPHILS # 8.1 10^3/uL (1.5-8.5); NEUTROPHILS % 69.9 % (36.0-66.0); PLATELET COUNT, AUTOMATED 304 10^3/uL (150-450); RED BLOOD COUNT 3.96 10^6/uL (4.00-5.40); WHITE BLOOD COUNT 11.6 10^3/uL (4.0-10.0)
[2020-03-28 08:28] LABS: BLOOD UREA NITROGEN 4 MG/DL (7-18); CALCIUM LEVEL 7.6 MG/DL (8.5-10.1); CARBON DIOXIDE LEVEL 32 MEQ/L (21-32); CHLORIDE LEVEL 106 MEQ/L (98-107); CREATININE FOR GFR 0.61 MG/DL (0.55-1.30); GLOMERULAR FILTRATION RATE > 60.0 (>58); GLUCOSE, FASTING 96 MG/DL (70-100); MAGNESIUM LEVEL 2.1 MG/DL (1.8-2.4); SODIUM LEVEL 142 MEQ/L (136-145)
[2020-03-28] MEDS: ONDANSETRON 4 MG ORAL DISINTEGRATING TAB PO PRN (08:50)
[2020-03-28] MEDS: BALSALAZIDE PO SCH ×2 (08:50→12:58)
[2020-03-28] MEDS: metroNIDAZOLE (FLAGYL) 500MG TABLET PO SCH (08:54)
[2020-03-28] MEDS: predniSONE 20 MG TAB PO SCH (08:54)
[2020-03-28] MEDS: POTASSIUM CHLORIDE 10 MEQ SR TABLET PO SCH (08:54)
[2020-03-28] MEDS: PANTOPRAZOLE 40MG TAB (PROTONIX) PO SCH (08:55)
[2020-03-28 09:00] VITALS: BP 103/68
[2020-03-28] MEDS ORDERED: POTASSIUM CHLORIDE 10 MEQ SR TABLET PO SCH (11:00)
[2020-03-28] MEDS ORDERED: CEFD1CAP8 PO (12:01)
[2020-03-28] MEDS ORDERED: PRED10TA2 PO (12:01)
[2020-03-28] MEDS ORDERED: FLAG500T PO (12:01)
[2020-03-28] MEDS ORDERED: K-TA10TA2 PO (12:04)
--- NOTE | 2020-03-28 15:59 | DS.PDOC ---
Discharge Summary General Date of Admission Mar 23, 2020 at 01:47 Date of Discharge 03/28/20 Primary Care Physician: Helena Peoples PSYCHOLOGIST ENGINEERING Attending Physician: KENDRA BOO MD Discharge Summary PROCEDURES PERFORMED DURING STAY: None. ADMITTING/DISCHARGE DIAGNOSES: 1. UC flare 2. Leukocytosis 3. Hypokalemia 4. Anemia COMPLICATIONS/CHIEF COMPLAINT: Abd pain/BRBPR HISTORY OF PRESENT ILLNESS/HOSPITAL COURSE: As per medical records: Patient is a 39-year-old female with a past medical history of ulcerative colitis (Dx 01/[address] 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 Patient reports that since She has been on several different medications to help alleviate her ulcerative colitis symptoms.. She has been on multiple medications prescribed by her prime broker, however, was recently given prednisone 40 mg over the last 5 days. That did improve some of her symptoms. However, since she has stopped her symptoms have recurred. Pt was started on IV abx, prednisone 40 mg daily. Symptoms improved, diet adva nce. Hypokalemia replaced. Tolerating diet. No abd pain. Has GI janay on 04/04. Hemodynamically stable. To be d/c home today. CBC/BMP to be done on 03/30 with results to be sent to PCP. Ulcerative colitis flare S/p IV corticosteroids, Now on oral prednisone; plan to start taper tomorrow. Soft , low residue diet. Pain control with dicyclomine / Zofran Ceftriaxone and metronidazole. --> changed to ceftin/flagyl on d/c to complete total 7 days - Prednisone 30mg daily until seen by GI on 04/04 for further taper. Leukocytosis - Possibly 2/2 recently used corticosteroids, possibly 2/2 infectious etiology GI panel negative blood cultures negative till date. procalcitonin at 0.13 not elevated. Ceftriaxone and Flagyl --> Changed to ceftin/flagyl on d/c Hypokalemia replaced Acute on Chronic Microcytic anemia/ Thalassemia Minor HH at 7.7. Will transfuse if drops below 7. probably due to GIB, chronic disease on the back ground of thalassemia. - F/u with GI Gastrointestinal prophylaxis Protonix Insomnia - Ambien prn DVT prophylaxis TEDs/Sequentials DISCHARGE MEDICATIONS: Please see below. ALLERGIES: Please see below. PHYSICAL EXAMINATION ON DISCHARGE: Vitals: (see below) General: No acute distress, laying comfortably in bed. HEENT: Moist mucous membranes. Neck: No JVD or lymphadenopathy Cardiac: RRR, No murmurs Pulm: Clear to auscultation b/l. No wheezing, rhonchi Abd: NT/ND + BS Ext: No edema or cyanosis LABORATORY DATA: Please see below. PROGNOSIS: Good ACTIVITY: As tolerated. DIET: Low residual DISCHARGE PLAN/DISPOSITION: Home DISCHARGE INSTRUCTIONS: 1. F/u with PCP and GI in 1 week. Return to ED if symptoms worsen. DISCHARGE CONDITION: Stable. TIME SPENT ON DISCHARGE: 35 minutes. Vital Signs/I&Os Vital Signs Date Time Temp Pulse Resp B/P (MAP) Pulse Ox O2 Delivery O2 Flow Rate FiO2 03/28/20 09:00 98.7 85 17 103/68 (80) 100 Room Air I&O- Last 24 Hours up to 6 AM 03/28/20 06:00 Intake Total 4170 ml Balance 4170 ml Laboratory Data Labs 24H Laboratory Tests 2 03/28/20 07:20: Immature Granulocyte % (Auto) 0.9, Neutrophils (%) (Auto) 69.9H, Lymphocytes (%) (Auto) 22.8L, Monocytes (%) (Auto) 5.4H, Eosinophils (%) (Auto) 0.9, Basophils (%) (Auto) 0.1, Neutrophils # (Auto) 8.1, Lymphocytes # (Auto) 2.6, Monocytes # (Auto) 0.6, Eosinophils # (Auto) 0.1, Basophils # (Auto) 0.0, Nucleated Red Blood Cells % (auto) 0.0, Anion Gap 4L, Glomerular Filtration Rate > 60.0, Calcium Level 7.6L, Magnesium Level 2.1 CBC/BMP Laboratory Tests 03/28/20 07:20 Microbiology Microbiology 03/23/20 Blood Culture - Final, Complete NO GROWTH AFTER 5 DAYS 03/23/20 Blood Culture - Final, Complete NO GROWTH AFTER 5 DAYS 03/22/20 Gastrointestinal Tract Panel (PCR) - Final, Complete Discharge Medications Scheduled Balsalazide Sodium (Balsalazide Disodium) 750 Mg Capsule, 2,250 MG PO TID, (R eported) Cefdinir (Cefdinir) 300 Mg Capsule, 1 CAP PO BID Levocetirizine Dihydrochloride (Levocetirizine Dihydrochloride) 5 Mg Tablet, 5 MG PO QHS, (Reported) Metronidazole (Flagyl) 500 Mg Tablet, 500 MG PO TID Pantoprazole Sodium (Pantoprazole Sodium) 40 Mg Tablet.dr, 1 TAB PO DAILY Potassium Chloride (K-Tab ER) 10 Meq Tablet.er, 40 MEQ PO DAILY Prednisone (Prednisone) 10 Mg Tablet, 10 MG PO TAPER Take 3 tabs daily for 1 week and f/u with GI regarding taper Scheduled PRN Acetaminophen (Tylenol) 325 Mg Tablet, 650 MG PO Q4H PRN for PAIN / FEVER, (Reported) Dicyclomine HCl (Dicyclomine HCl) 10 Mg Capsule, 10 MG PO Q8HP PRN for abdominal cramps Fluticasone Propionate (Flonase Allergy Relief) 9.9 Ml [place].susp, 1 SPRAY NA BID PRN for NASAL CONGESTION, (Reported) Sumatriptan Succinate (Sumatriptan Succinate) 25 Mg Tablet, 25 MG PO BID PRN for MIGRAINE, (Reported) Allergies Coded Allergies: No Known Allergies (Unverified , 03/22/20) KENDRA BOO MD Mar 28, 2020 15:59
== END 2020-03-28 14:25 | disposition home or self-care (01) | DRG 387 ==
LOC: M ED 18:37 → M ED INP 03-23 01:47 → ENRESERV 03-23 02:01 → M MS5PR 03-23 02:54 → M PED 03-26 14:25
PROVIDERS: ADMIT Internal Medicine; ATTEND Internal Medicine
DX: K51.90 Ulcerative colitis, unspecified, without complications (principal); E87.6 Hypokalemia; D72.829 Elevated white blood cell count, unspecified; D53.9 Nutritional anemia, unspecified; G47.00 Insomnia, unspecified; D56.3 Thalassemia minor; Z79.899 Other long term (current) drug therapy

== ENCOUNTER → 2020-04-05 | Outpatient (REF) | payer OTHER ==
[~2020-04-05] MED LIST changes: +ACET-907 PO; +BALS75CA PO; +CEFD1CAP8 PO; +DICY1CAP8 PO; +FLAG500T PO; +FLON1SPR; +K-TA10TA2 PO; +LEVOTAB10 PO; +PANT40TA29 PO; +PRED10TA2 PO; +PRED20TA PO; +SUMA25TA3 PO
[2020-05-11 15:53] LABS: HEMATOCRIT 30.7 % (36.0-47.0); HEMOGLOBIN 9.2 g/dl (12.0-15.5); MEAN CORPUSCULAR HEMOGLOBIN 18.8 pg (27.0-33.0); MEAN CORPUSCULAR VOLUME 62.8 fl (80.0-96.0); PLATELET COUNT, AUTOMATED 259 10^3/uL (150-450); RED BLOOD COUNT 4.89 10^6/uL (4.00-5.40); WHITE BLOOD COUNT 17.3 10^3/uL (4.0-10.0)
== END ==
LOC: M LABDRAWC 11:21
PROVIDERS: ATTEND Internal Medicine Gastroenterology
DX: K51.20 Ulcerative (chronic) proctitis without complications (principal)

== ENCOUNTER → 2020-04-05 | Outpatient (REF) | payer OTHER ==
[2020-05-24 10:01] LABS: BLOOD UREA NITROGEN 12 MG/DL (7-18); CALCIUM LEVEL 8.3 MG/DL (8.5-10.1); CARBON DIOXIDE LEVEL 30 MEQ/L (21-32); CHLORIDE LEVEL 101 MEQ/L (98-107); CREATININE FOR GFR 0.75 MG/DL (0.55-1.30); GLOMERULAR FILTRATION RATE > 60.0 (>58); GLUCOSE, FASTING 133 MG/DL (70-100); POTASSIUM SERUM 3.6 MEQ/L (3.5-5.1); SODIUM LEVEL 137 MEQ/L (136-145)
[2020-06-04 13:03] LABS: ANTINUCLEAR ANTIBODIES DIRECT See Separate Report
== END ==
LOC: M SFHCCLAY 09:56
PROVIDERS: ATTEND Family Medicine
DX: E87.5 Hyperkalemia (principal); K51.90 Ulcerative colitis, unspecified, without complications

== ENCOUNTER → 2020-06-20 | Outpatient (REF) | payer OTHER ==
[2020-06-20 16:13] LABS: HEMATOCRIT 34.6 % (36.0-47.0); HEMOGLOBIN 10.6 g/dl (12.0-15.5); MEAN CORPUSCULAR HEMOGLOBIN 19.4 pg (27.0-33.0); MEAN CORPUSCULAR HGB CONC 30.6 g/dl (32.0-36.5); MEAN CORPUSCULAR VOLUME 63.5 fl (80.0-96.0); PLATELET COUNT, AUTOMATED 184 10^3/uL (150-450); RED BLOOD COUNT 5.45 10^6/uL (4.00-5.40); WHITE BLOOD COUNT 7.1 10^3/uL (4.0-10.0)
[2020-06-20 16:53] LABS: ALBUMIN 3.7 GM/DL (3.2-5.2); BILIRUBIN,DIRECT 0.2 MG/DL (0.0-0.2); BILIRUBIN,TOTAL 0.6 MG/DL (0.2-1.0); PERCENT SATURATION 26.2 % (13.2-45.0); TOTAL PROTEIN 6.6 GM/DL (6.4-8.2)
== END ==
LOC: M LABDRAWC 15:50
PROVIDERS: ATTEND Internal Medicine Gastroenterology
DX: K51.20 Ulcerative (chronic) proctitis without complications (principal)

== ENCOUNTER → 2020-09-25 | Outpatient (REF) | payer OTHER ==
[2020-09-25 15:54] LABS: BASO % 0.3 % (0.0-1.0); EOS # 0.2 10^3/uL (0.0-0.5); EOS % 1.1 % (0.0-3.0); HEMATOCRIT 29.4 % (36.0-47.0); HEMOGLOBIN 8.9 g/dl (12.0-15.5); LYMPH # 1.6 10^3/uL (1.5-5.0); LYMPH % 12.3 % (24.0-44.0); MEAN CORPUSCULAR HEMOGLOBIN 19.1 pg (27.0-33.0); MEAN CORPUSCULAR HGB CONC 30.3 g/dl (32.0-36.5); MEAN CORPUSCULAR VOLUME 63.2 fl (80.0-96.0); MONO # 0.9 10^3/uL (0.0-0.8); MONO % 6.9 % (0.0-5.0); NEUTROPHILS # 10.4 10^3/uL (1.5-8.5); NEUTROPHILS % 78.6 % (36.0-66.0); PLATELET COUNT, AUTOMATED 266 10^3/uL (150-450); RED BLOOD COUNT 4.65 10^6/uL (4.00-5.40); WHITE BLOOD COUNT 13.3 10^3/uL (4.0-10.0)
[2020-09-25 16:28] LABS: ALT/SGPT 14 U/L (12-78); BILIRUBIN,TOTAL 0.8 MG/DL (0.2-1.0); BLOOD UREA NITROGEN 9 MG/DL (7-18); CALCIUM LEVEL 8.5 MG/DL (8.5-10.1); CARBON DIOXIDE LEVEL 31 MEQ/L (21-32); CHLORIDE LEVEL 104 MEQ/L (98-107); CREATININE FOR GFR 0.67 MG/DL (0.55-1.30); GLOMERULAR FILTRATION RATE > 60.0 (>58); GLUCOSE, FASTING 81 MG/DL (70-100); MAGNESIUM LEVEL 2.2 MG/DL (1.8-2.4); POTASSIUM SERUM 3.2 MEQ/L (3.5-5.1); SODIUM LEVEL 140 MEQ/L (136-145); TOTAL PROTEIN 6.4 GM/DL (6.4-8.2)
== END ==
LOC: M SFHCCLAY 12:01
PROVIDERS: ATTEND Nurse Practitioner Family
DX: K52.9 Noninfective gastroenteritis and colitis, unspecified (principal)

== ENCOUNTER → 2020-10-16 | Outpatient (REF) | payer OTHER ==
[2020-10-17 11:57] LABS: HEMATOCRIT 33.2 % (36.0-47.0); HEMOGLOBIN 10.2 g/dl (12.0-15.5); MEAN CORPUSCULAR HEMOGLOBIN 19.8 pg (27.0-33.0); MEAN CORPUSCULAR HGB CONC 30.7 g/dl (32.0-36.5); MEAN CORPUSCULAR VOLUME 64.5 fl (80.0-96.0); PLATELET COUNT, AUTOMATED 230 10^3/uL (150-450); RED BLOOD COUNT 5.15 10^6/uL (4.00-5.40); WHITE BLOOD COUNT 10.5 10^3/uL (4.0-10.0)
[2020-10-17 12:54] LABS: BLOOD UREA NITROGEN 19 MG/DL (7-18); CALCIUM LEVEL 9.1 MG/DL (8.5-10.1); CARBON DIOXIDE LEVEL 30 MEQ/L (21-32); CHLORIDE LEVEL 102 MEQ/L (98-107); CREATININE FOR GFR 0.72 MG/DL (0.55-1.30); FERRITIN 96 NG/ML (8-252); GLOMERULAR FILTRATION RATE > 60.0 (>58); GLUCOSE, FASTING 110 MG/DL (70-100); IRON (FE) 42 UG/DL (50-170); PERCENT SATURATION 16.3 % (13.2-45.0); POTASSIUM SERUM 5.2 MEQ/L (3.5-5.1); SODIUM LEVEL 139 MEQ/L (136-145); TOTAL 25(OH) VITAMIN D 32.2 NG/ML (30.0-100.0); TOTAL IRON BINDING CAPACITY 257 UG/DL (250-450)
[2020-10-17 12:55] LABS: VITAMIN B12 LEVEL 779 PG/ML (247-911)
== END ==
LOC: M LABDRAWC 11:29
PROVIDERS: ATTEND Internal Medicine Gastroenterology
DX: K51.20 Ulcerative (chronic) proctitis without complications (principal)

== ENCOUNTER → 2021-03-29 | Outpatient (REF) | payer OTHER | LOC: M LAB REF 15:00 | PROVIDERS: ATTEND Student in an Organized Health Care Education/Training Program | DX: K51.20 Ulcerative (chronic) proctitis without complications (principal); A04.72 Enterocolitis due to Clostridium difficile, not specified as recurrent ==

== ENCOUNTER → 2021-04-18 | Outpatient (REF) | payer OTHER ==
[2021-04-18 16:13] LABS: HEMATOCRIT 32.5 % (36.0-47.0); HEMOGLOBIN 9.9 g/dl (12.0-15.5); MEAN CORPUSCULAR HEMOGLOBIN 19.7 pg (27.0-33.0); MEAN CORPUSCULAR HGB CONC 30.5 g/dl (32.0-36.5); MEAN CORPUSCULAR VOLUME 64.7 fl (80.0-96.0); PLATELET COUNT, AUTOMATED 218 10^3/uL (150-450); RED BLOOD COUNT 5.02 10^6/uL (4.00-5.40); WHITE BLOOD COUNT 10.5 10^3/uL (4.0-10.0)
[2021-04-18 16:43] LABS: ALBUMIN 3.4 GM/DL (3.2-5.2); BILIRUBIN,DIRECT 0.2 MG/DL (0.0-0.2); BILIRUBIN,TOTAL 0.5 MG/DL (0.2-1.0); C REACTIVE PROTEIN QUANTITATIV 0.31 MG/DL (0.00-0.30); TOTAL PROTEIN 6.3 GM/DL (6.4-8.2)
== END ==
LOC: M LABDRAWC 15:55
PROVIDERS: ATTEND Internal Medicine Gastroenterology
DX: K51.20 Ulcerative (chronic) proctitis without complications (principal)

== ENCOUNTER → 2021-04-18 | Outpatient (REF) | payer OTHER ==
[2021-04-18 16:15] LABS: BASO % 0.3 % (0.0-1.0); HEMATOCRIT 32.6 % (36.0-47.0); HEMOGLOBIN 9.8 g/dl (12.0-15.5); LYMPH # 1.7 10^3/uL (1.5-5.0); LYMPH % 15.9 % (24.0-44.0); MEAN CORPUSCULAR HEMOGLOBIN 19.5 pg (27.0-33.0); MEAN CORPUSCULAR HGB CONC 30.1 g/dl (32.0-36.5); MEAN CORPUSCULAR VOLUME 64.8 fl (80.0-96.0); MONO # 0.8 10^3/uL (0.0-0.8); MONO % 7.6 % (2.0-8.0); NEUTROPHILS # 7.9 10^3/uL (1.5-8.5); NEUTROPHILS % 75.8 % (36.0-66.0); PLATELET COUNT, AUTOMATED 211 10^3/uL (150-450); RED BLOOD COUNT 5.03 10^6/uL (4.00-5.40); WHITE BLOOD COUNT 10.5 10^3/uL (4.0-10.0)
[2021-04-18 16:47] LABS: ALBUMIN 3.5 GM/DL (3.2-5.2); ALT/SGPT 18 U/L (12-78); BILIRUBIN,TOTAL 0.5 MG/DL (0.2-1.0); BLOOD UREA NITROGEN 11 MG/DL (7-18); CALCIUM LEVEL 7.7 MG/DL (8.5-10.1); CARBON DIOXIDE LEVEL 28 MEQ/L (21-32); CHLORIDE LEVEL 109 MEQ/L (98-107); CHOLESTEROL LEVEL 134 MG/DL (<200); CHOLESTEROL RISK RATIO 2.913 (<5); CREATININE FOR GFR 0.56 MG/DL (0.55-1.30); FREE T4 0.93 NG/DL (0.76-1.46); GLOMERULAR FILTRATION RATE > 60.0 (>58); GLUCOSE, FASTING 91 MG/DL (70-100); HDL CHOLESTEROL 46 MG/DL (>40); LDL CHOLESTEROL 72 MG/DL (<100); NON-HDL-C 88 MG/DL; POTASSIUM SERUM 3.9 MEQ/L (3.5-5.1); SODIUM LEVEL 141 MEQ/L (136-145); THYROID STIMULATING HORMONE 0.636 uIU/ML (0.358-3.740); TOTAL PROTEIN 6.3 GM/DL (6.4-8.2); TRIGLYCERIDES LEVEL 79 MG/DL (<150)
== END ==
LOC: M SFHCCLAY 11:17
PROVIDERS: ATTEND Nurse Practitioner Family
DX: Z00.00 Encounter for general adult medical examination without abnormal findings (principal); G43.709 Chronic migraine without aura, not intractable, without status migrainosus; D56.3 Thalassemia minor; J30.9 Allergic rhinitis, unspecified; E78.5 Hyperlipidemia, unspecified

== ENCOUNTER → 2021-04-24 | Outpatient (REF) | payer OTHER | LOC: M LABDRAWC 15:56 | PROVIDERS: ATTEND Internal Medicine Gastroenterology | DX: K51.20 Ulcerative (chronic) proctitis without complications (principal) ==

== ENCOUNTER → 2021-04-25 | Outpatient (REF) | payer OTHER | LOC: M LAB REF 11:31 | PROVIDERS: ATTEND Internal Medicine Gastroenterology | DX: K51.20 Ulcerative (chronic) proctitis without complications (principal) ==

== ENCOUNTER → 2021-06-04 | Outpatient (REF) | payer OTHER ==
[2021-06-04 15:58] LABS: BASO % 0.2 % (0.0-1.0); EOS # 0.1 10^3/uL (0.0-0.5); EOS % 1.2 % (0.0-3.0); HEMATOCRIT 28.3 % (36.0-47.0); HEMOGLOBIN 8.6 g/dl (12.0-15.5); LYMPH % 22.4 % (24.0-44.0); MEAN CORPUSCULAR HEMOGLOBIN 19.6 pg (27.0-33.0); MEAN CORPUSCULAR HGB CONC 30.4 g/dl (32.0-36.5); MEAN CORPUSCULAR VOLUME 64.6 fl (80.0-96.0); MONO # 0.3 10^3/uL (0.0-0.8); MONO % 6.3 % (2.0-8.0); NEUTROPHILS % 69.2 % (36.0-66.0); PLATELET COUNT, AUTOMATED 157 10^3/uL (150-450); RED BLOOD COUNT 4.38 10^6/uL (4.00-5.40); WHITE BLOOD COUNT 4.3 10^3/uL (4.0-10.0)
[2021-06-04 16:24] LABS: ALBUMIN 2.8 GM/DL (3.2-5.2); ALT/SGPT 47 U/L (12-78); BILIRUBIN,TOTAL 0.5 MG/DL (0.2-1.0); BLOOD UREA NITROGEN 11 MG/DL (7-18); CARBON DIOXIDE LEVEL 33 MEQ/L (21-32); CHLORIDE LEVEL 102 MEQ/L (98-107); CREATININE FOR GFR 0.67 MG/DL (0.55-1.30); GLOMERULAR FILTRATION RATE > 60.0 (>58); GLUCOSE, FASTING 112 MG/DL (70-100); MONO REFLEX EBV COMP NEGATIVE (NEGATIVE); POTASSIUM SERUM 3.6 MEQ/L (3.5-5.1); SODIUM LEVEL 137 MEQ/L (136-145); TOTAL PROTEIN 6.1 GM/DL (6.4-8.2)
== END ==
LOC: M SFHCCLAY 11:16
PROVIDERS: ATTEND Physician Assistant
DX: R50.9 Fever, unspecified (principal)

== ENCOUNTER → 2021-06-10 | Outpatient (REF) | payer OTHER ==
[2021-06-10 16:16] LABS: BASO % 0.4 % (0.0-1.0); EOS % 0.5 % (0.0-3.0); HEMATOCRIT 28.8 % (36.0-47.0); HEMOGLOBIN 8.6 g/dl (12.0-15.5); LYMPH # 1.7 10^3/uL (1.5-5.0); LYMPH % 20.1 % (24.0-44.0); MEAN CORPUSCULAR HEMOGLOBIN 19.5 pg (27.0-33.0); MEAN CORPUSCULAR HGB CONC 29.9 g/dl (32.0-36.5); MEAN CORPUSCULAR VOLUME 65.5 fl (80.0-96.0); MONO # 0.6 10^3/uL (0.0-0.8); MONO % 6.8 % (2.0-8.0); NEUTROPHILS # 5.9 10^3/uL (1.5-8.5); NEUTROPHILS % 69.9 % (36.0-66.0); PLATELET COUNT, AUTOMATED 319 10^3/uL (150-450); WHITE BLOOD COUNT 8.4 10^3/uL (4.0-10.0)
[2021-06-10 16:25] LABS: ALBUMIN 3.2 GM/DL (3.2-5.2); ALT/SGPT 49 U/L (12-78); BILIRUBIN,TOTAL 0.7 MG/DL (0.2-1.0); BLOOD UREA NITROGEN 15 MG/DL (7-18); C REACTIVE PROTEIN QUANTITATIV 1.92 MG/DL (0.00-0.30); CALCIUM LEVEL 8.6 MG/DL (8.5-10.1); CARBON DIOXIDE LEVEL 29 MEQ/L (21-32); CHLORIDE LEVEL 105 MEQ/L (98-107); CREATININE FOR GFR 0.65 MG/DL (0.55-1.30); GLOMERULAR FILTRATION RATE > 60.0 (>58); GLUCOSE, FASTING 104 MG/DL (70-100); IRON (FE) 39 UG/DL (50-170); PERCENT SATURATION 13.5 % (13.2-45.0); SODIUM LEVEL 138 MEQ/L (136-145); TOTAL IRON BINDING CAPACITY 288 UG/DL (250-450); TOTAL PROTEIN 6.5 GM/DL (6.4-8.2)
[2021-06-10 19:14] LABS: LIPASE 584 U/L (73-393)
== END ==
LOC: M SFHCCAPE 10:58
PROVIDERS: ATTEND Physician Assistant
DX: R53.83 Other fatigue (principal)
CPT/HCPCS: 80053; 83550; 83690; 85025; 86140; 86617; 87798; U0003

== ENCOUNTER 2021-06-13 16:15 | Emergency (ER) | payer OTHER ==
[~2021-06-13] VITALS: Ht 154.9 cm; Wt 66.3 kg
[2021-06-13] MEDS ORDERED: ONDA4TAB6 (16:27)
[2021-06-13] MEDS ORDERED: SERT25TA21 (16:27)
[2021-06-13] MEDS ORDERED: IBUP200T45 PO (16:27)
[2021-06-13] MEDS ORDERED: MESA1.2T (16:27)
[2021-06-13] MEDS ORDERED: MONT10TA10 (16:27)
[2021-06-13] MEDS ORDERED: AZAT50TA2 (16:27)
[2021-06-13] MEDS ORDERED: NS 1,000 ML IV ONE (18:20)
[2021-06-13 19:00] LABS: BASO % 0.4 % (0.0-1.0); EOS # 0.1 10^3/uL (0.0-0.5); EOS % 1.5 % (0.0-3.0); HEMOGLOBIN 8.5 g/dl (12.0-15.5); LYMPH # 1.8 10^3/uL (1.5-5.0); LYMPH % 23.7 % (24.0-44.0); MEAN CORPUSCULAR HEMOGLOBIN 19.6 pg (27.0-33.0); MEAN CORPUSCULAR HGB CONC 30.4 g/dl (32.0-36.5); MEAN CORPUSCULAR VOLUME 64.7 fl (80.0-96.0); MONO # 0.6 10^3/uL (0.0-0.8); PLATELET COUNT, AUTOMATED 334 10^3/uL (150-450); RED BLOOD COUNT 4.33 10^6/uL (4.00-5.40); WHITE BLOOD COUNT 7.5 10^3/uL (4.0-10.0)
[2021-06-13] MEDS ORDERED: METOCLOPRAMIDE INJ 10MG/2ML VIAL (J2765 PER 1) IV ONE (19:00)
[2021-06-13 19:20] LABS: BILIRUBIN,DIRECT 0.1 MG/DL (0.0-0.2); BILIRUBIN,TOTAL 0.5 MG/DL (0.2-1.0); MAGNESIUM LEVEL 2.4 MG/DL (1.8-2.4); TOTAL PROTEIN 6.4 GM/DL (6.4-8.2)
--- NOTE | 2021-06-13 19:44 | REPVR ---
PROCEDURE INFORMATION: Exam: CT Head Without Contrast Exam date and time: 06/13/2021 7:34 PM Age: 41 years old Clinical indication: Pain; Headache; Additional info: PAGE x 2 wks, fatigue TECHNIQUE: Imaging protocol: Computed tomography of the head without contrast. Radiation optimization: All CT scans at this facility use at least one of these dose optimization techniques: automated exposure control; mA and/or kV adjustment per patient size (includes targeted exams where dose is matched to clinical indication); or iterative reconstruction. COMPARISON: No relevant prior studies available. FINDINGS: Brain: Normal. No hemorrhage. Unremarkable white matter. No mass effect. Cerebral ventricles: No ventriculomegaly. Paranasal sinuses: Visualized sinuses are unremarkable. No fluid levels. Mastoid air cells: Visualized mastoid air cells are well aerated. Bones/joints: Unremarkable. No acute fracture. Soft tissues: Unremarkable. IMPRESSION: No acute intracranial abnormality. Electronically signed by: Vasu Vigil On 06/13/2021 19:43:58 PM
[2021-06-13 20:56] VITALS: BP 92/66
== END 2021-06-13 21:02 | disposition home or self-care (01) ==
LOC: M ED 16:15
DX: R51.9 Headache, unspecified (principal); R53.83 Other fatigue; K51.90 Ulcerative colitis, unspecified, without complications; D56.3 Thalassemia minor; Z79.899 Other long term (current) drug therapy
CPT/HCPCS: 70450; 80047; 80076; 83690; 83735; 84702; 85025; 87207; 87798; 96361; 96374; 99284; J2765

== ENCOUNTER → 2021-06-24 | Outpatient (REF) | payer OTHER ==
[~2021-06-24] MED LIST changes: +AZAT50TA2; +IBUP200T46 PO; +MESA1.2T; +MONT10TA10; +ONDA4TAB6; +SERT25TA21
[2021-06-25 11:41] LABS: BASO # 0.1 10^3/uL (0.0-0.2); BASO % 0.7 % (0.0-1.0); EOS # 0.1 10^3/uL (0.0-0.5); HEMATOCRIT 31.1 % (36.0-47.0); HEMOGLOBIN 9.4 g/dl (12.0-15.5); LYMPH # 2.7 10^3/uL (1.5-5.0); LYMPH % 39.3 % (24.0-44.0); MEAN CORPUSCULAR HEMOGLOBIN 19.7 pg (27.0-33.0); MEAN CORPUSCULAR HGB CONC 30.2 g/dl (32.0-36.5); MEAN CORPUSCULAR VOLUME 65.3 fl (80.0-96.0); MONO # 0.4 10^3/uL (0.0-0.8); MONO % 5.9 % (2.0-8.0); NEUTROPHILS # 3.7 10^3/uL (1.5-8.5); NEUTROPHILS % 52.8 % (36.0-66.0); PLATELET COUNT, AUTOMATED 216 10^3/uL (150-450); RED BLOOD COUNT 4.76 10^6/uL (4.00-5.40); WHITE BLOOD COUNT 6.9 10^3/uL (4.0-10.0)
[2021-06-25 12:14] LABS: ALBUMIN 3.6 GM/DL (3.2-5.2); ALT/SGPT 21 U/L (12-78); BILIRUBIN,TOTAL 0.5 MG/DL (0.2-1.0); BLOOD UREA NITROGEN 17 MG/DL (7-18); CALCIUM LEVEL 8.8 MG/DL (8.5-10.1); CARBON DIOXIDE LEVEL 28 MEQ/L (21-32); CHLORIDE LEVEL 108 MEQ/L (98-107); GLOMERULAR FILTRATION RATE > 60.0 (>58); GLUCOSE, FASTING 89 MG/DL (70-100); POTASSIUM SERUM 4.4 MEQ/L (3.5-5.1); SODIUM LEVEL 139 MEQ/L (136-145); TOTAL PROTEIN 6.6 GM/DL (6.4-8.2)
== END ==
LOC: M SFHCCLAY 13:57
PROVIDERS: ATTEND Nurse Practitioner Family
DX: K51.90 Ulcerative colitis, unspecified, without complications (principal); F41.8 Other specified anxiety disorders

== ENCOUNTER → 2021-07-19 | Outpatient (REF) | payer OTHER ==
[2021-07-19 14:30] LABS: HEPATITIS B CORE ANTIBODY IGM NEGATIVE (NEGATIVE); HEPATITIS B SURFACE ANTIBODY POSITIVE (POSITIVE); HEPATITIS B SURFACE ANTIGEN NEGATIVE (NEGATIVE)
== END ==
LOC: M LABDRAWC 11:10
PROVIDERS: ATTEND Internal Medicine Gastroenterology
DX: K51.918 Ulcerative colitis, unspecified with other complication (principal)

== ENCOUNTER → 2021-09-12 | Outpatient (REF) | payer OTHER ==
[2021-09-12 15:46] LABS: HEMATOCRIT 34.7 % (36.0-47.0); HEMOGLOBIN 10.7 g/dl (12.0-15.5); MEAN CORPUSCULAR HEMOGLOBIN 19.5 pg (27.0-33.0); MEAN CORPUSCULAR HGB CONC 30.8 g/dl (32.0-36.5); MEAN CORPUSCULAR VOLUME 63.3 fl (80.0-96.0); PLATELET COUNT, AUTOMATED 198 10^3/uL (150-450); RED BLOOD COUNT 5.48 10^6/uL (4.00-5.40); WHITE BLOOD COUNT 7.1 10^3/uL (4.0-10.0)
[2021-09-12 15:51] LABS: ALBUMIN 3.6 GM/DL (3.2-5.2); ALT/SGPT 21 U/L (12-78); BILIRUBIN,DIRECT 0.2 MG/DL (0.0-0.2); BILIRUBIN,TOTAL 0.6 MG/DL (0.2-1.0); C REACTIVE PROTEIN QUANTITATIV < 0.30 MG/DL (0.00-0.30); TOTAL PROTEIN 6.6 GM/DL (6.4-8.2)
== END ==
LOC: M LABDRAWC 15:22
PROVIDERS: ATTEND Internal Medicine Gastroenterology
DX: K51.20 Ulcerative (chronic) proctitis without complications (principal)

== ENCOUNTER → 2022-01-09 | Outpatient (REF) | payer OTHER ==
[~2022-01-09] MED LIST changes: -AZAT50TA2; +AZAT50TA37; -CEFD1CAP8 PO; +CEFD300C41 PO; -MONT10TA10; +MONT10TA97
[2022-01-09 12:16] LABS: HEMOGLOBIN 10.6 g/dl (12.0-15.5); MEAN CORPUSCULAR HGB CONC 31.2 g/dl (32.0-36.5); PLATELET COUNT, AUTOMATED 198 10^3/uL (150-450); RED BLOOD COUNT 5.31 10^6/uL (4.00-5.40); WHITE BLOOD COUNT 6.9 10^3/uL (4.0-10.0)
[2022-01-09 12:42] LABS: ALBUMIN 3.8 GM/DL (3.2-5.2); BILIRUBIN,DIRECT 0.1 MG/DL (0.0-0.2); BILIRUBIN,TOTAL 0.5 MG/DL (0.2-1.0); PERCENT SATURATION 25.7 % (13.2-45.0); TOTAL PROTEIN 6.7 GM/DL (6.4-8.2)
== END ==
LOC: M LABDRAWC 11:19
PROVIDERS: ATTEND Internal Medicine Gastroenterology
DX: K51.20 Ulcerative (chronic) proctitis without complications (principal)

== ENCOUNTER → 2022-03-03 | Outpatient (REF) | payer OTHER ==
[2022-03-03 11:34] LABS: BASO % 0.3 % (0.0-1.0); EOS % 0.5 % (0.0-3.0); HEMOGLOBIN 10.2 g/dl (12.0-15.5); LYMPH # 1.8 10^3/uL (1.5-5.0); LYMPH % 28.5 % (24.0-44.0); MEAN CORPUSCULAR HEMOGLOBIN 19.8 pg (27.0-33.0); MEAN CORPUSCULAR HGB CONC 30.9 g/dl (32.0-36.5); MEAN CORPUSCULAR VOLUME 64.1 fl (80.0-96.0); MONO # 0.5 10^3/uL (0.0-0.8); MONO % 7.3 % (2.0-8.0); NEUTROPHILS % 63.2 % (36.0-66.0); PLATELET COUNT, AUTOMATED 192 10^3/uL (150-450); RED BLOOD COUNT 5.15 10^6/uL (4.00-5.40); WHITE BLOOD COUNT 6.3 10^3/uL (4.0-10.0)
[2022-03-03 12:33] LABS: ALBUMIN 3.7 GM/DL (3.2-5.2); ALT/SGPT 19 U/L (12-78); BILIRUBIN,TOTAL 0.7 MG/DL (0.2-1.0); BLOOD UREA NITROGEN 16 MG/DL (7-18); CALCIUM LEVEL 8.5 MG/DL (8.5-10.1); CARBON DIOXIDE LEVEL 25 MEQ/L (21-32); CHLORIDE LEVEL 111 MEQ/L (98-107); CHOLESTEROL LEVEL 152 MG/DL (<200); CREATININE FOR GFR 0.68 MG/DL (0.55-1.30); FREE T4 0.71 NG/DL (0.76-1.46); GLOMERULAR FILTRATION RATE > 60.0 (>58); GLUCOSE, FASTING 86 MG/DL (70-100); HDL CHOLESTEROL 51 MG/DL (>40); LDL CHOLESTEROL 90 MG/DL (<100); NON-HDL-C 101 MG/DL; POTASSIUM SERUM 4.3 MEQ/L (3.5-5.1); SODIUM LEVEL 142 MEQ/L (136-145); TOTAL PROTEIN 6.4 GM/DL (6.4-8.2); TRIGLYCERIDES LEVEL 57 MG/DL (<150)
== END ==
LOC: M SFHCCLAY 09:29
PROVIDERS: ATTEND Nurse Practitioner Family
DX: K51.90 Ulcerative colitis, unspecified, without complications (principal); F41.8 Other specified anxiety disorders; G43.709 Chronic migraine without aura, not intractable, without status migrainosus; D56.3 Thalassemia minor; J30.9 Allergic rhinitis, unspecified; E78.5 Hyperlipidemia, unspecified

== ENCOUNTER → 2022-05-09 | Outpatient (REF) | payer OTHER ==
[2022-05-09 17:45] LABS: FREE T4 0.84 NG/DL (0.76-1.46); THYROID STIMULATING HORMONE 2.02 uIU/ML (0.358-3.740)
== END ==
LOC: M SFHCCLAY 13:18
PROVIDERS: ATTEND Nurse Practitioner Family
DX: R79.89 Other specified abnormal findings of blood chemistry (principal)

== ENCOUNTER → 2022-06-11 | Outpatient (REF) | payer OTHER ==
[2022-06-11 11:56] LABS: BASO % 0.4 % (0.0-1.0); EOS # 0.1 10^3/uL (0.0-0.5); EOS % 0.8 % (0.0-3.0); HEMATOCRIT 33.9 % (36.0-47.0); HEMOGLOBIN 10.6 g/dl (12.0-15.5); MEAN CORPUSCULAR HEMOGLOBIN 20.5 pg (27.0-33.0); MEAN CORPUSCULAR HGB CONC 31.3 g/dl (32.0-36.5); MEAN CORPUSCULAR VOLUME 65.4 fl (80.0-96.0); MONO # 0.6 10^3/uL (0.0-0.8); MONO % 7.3 % (2.0-8.0); NEUTROPHILS % 65.1 % (36.0-66.0); PLATELET COUNT, AUTOMATED 204 10^3/uL (150-450); RED BLOOD COUNT 5.18 10^6/uL (4.00-5.40); WHITE BLOOD COUNT 7.6 10^3/uL (4.0-10.0)
[2022-06-11 12:17] LABS: ALBUMIN 3.8 GM/DL (3.2-5.2); BILIRUBIN,DIRECT 0.2 MG/DL (0.0-0.2); BILIRUBIN,TOTAL 0.6 MG/DL (0.2-1.0); TOTAL PROTEIN 6.7 GM/DL (6.4-8.2)
== END ==
LOC: M LABDRAWC 11:10
PROVIDERS: ATTEND Physician Assistant
DX: K51.20 Ulcerative (chronic) proctitis without complications (principal)

== ENCOUNTER → 2022-07-21 | Outpatient (REF) | payer OTHER | LOC: M LABDRAWC 17:10 | PROVIDERS: ATTEND Internal Medicine Gastroenterology | DX: K51.20 Ulcerative (chronic) proctitis without complications (principal) ==

== ENCOUNTER → 2022-09-25 | Outpatient (REF) | payer OTHER ==
[2022-09-25 17:28] LABS: BASO % 0.3 % (0.0-1.0); EOS # 0.1 10^3/uL (0.0-0.5); EOS % 0.6 % (0.0-3.0); HEMATOCRIT 31.8 % (36.0-47.0); HEMOGLOBIN 9.7 g/dl (12.0-15.5); LYMPH % 25.4 % (24.0-44.0); MEAN CORPUSCULAR HEMOGLOBIN 20.1 pg (27.0-33.0); MEAN CORPUSCULAR HGB CONC 30.5 g/dl (32.0-36.5); MONO # 0.6 10^3/uL (0.0-0.8); NEUTROPHILS # 5.2 10^3/uL (1.5-8.5); NEUTROPHILS % 66.3 % (36.0-66.0); PLATELET COUNT, AUTOMATED 215 10^3/uL (150-450); RED BLOOD COUNT 4.82 10^6/uL (4.00-5.40); WHITE BLOOD COUNT 7.9 10^3/uL (4.0-10.0)
== END ==
LOC: M LABDRAWC 16:43
PROVIDERS: ATTEND Internal Medicine Gastroenterology
DX: Z51.81 Encounter for therapeutic drug level monitoring (principal)

== ENCOUNTER → 2022-09-29 | Outpatient (REF) | payer OTHER ==
[2022-09-29 12:33] LABS: ALBUMIN 3.6 G/DL (3.2-5.2); BILIRUBIN,DIRECT 0.2 MG/DL (<0.4); BILIRUBIN,TOTAL 0.7 MG/DL (0.3-1.2); TOTAL PROTEIN 6.2 G/DL (5.7-8.2)
== END ==
LOC: M LABDRAWC 11:18
PROVIDERS: ATTEND Physician Assistant
DX: Z51.81 Encounter for therapeutic drug level monitoring (principal)

== ENCOUNTER → 2022-12-09 | Outpatient (REF) | payer OTHER ==
[2022-12-09 12:31] LABS: BASO % 0.3 % (0.0-1.0); EOS # 0.1 10^3/uL (0.0-0.5); EOS % 0.8 % (0.0-3.0); HEMATOCRIT 33.8 % (36.0-47.0); HEMOGLOBIN 10.3 g/dl (12.0-15.5); LYMPH % 27.7 % (24.0-44.0); MEAN CORPUSCULAR HEMOGLOBIN 19.9 pg (27.0-33.0); MEAN CORPUSCULAR HGB CONC 30.5 g/dl (32.0-36.5); MEAN CORPUSCULAR VOLUME 65.4 fl (80.0-96.0); MONO # 0.5 10^3/uL (0.0-0.8); MONO % 6.8 % (2.0-8.0); NEUTROPHILS # 4.7 10^3/uL (1.5-8.5); NEUTROPHILS % 64.3 % (36.0-66.0); PLATELET COUNT, AUTOMATED 249 10^3/uL (150-450); RED BLOOD COUNT 5.17 10^6/uL (4.00-5.40); WHITE BLOOD COUNT 7.3 10^3/uL (4.0-10.0)
[2022-12-09 12:51] LABS: ALBUMIN 3.7 G/DL (3.2-5.2); BILIRUBIN,DIRECT 0.2 MG/DL (<0.4); BILIRUBIN,TOTAL 0.4 MG/DL (0.3-1.2); TOTAL PROTEIN 6.3 G/DL (5.7-8.2)
== END ==
LOC: M LABDRAWC 11:33
PROVIDERS: ATTEND Nurse Practitioner Family
DX: Z51.81 Encounter for therapeutic drug level monitoring (principal)

== ENCOUNTER → 2023-03-06 | Outpatient (CLI) | payer OTHER ==
[~2023-03-06] MED LIST changes: -K-TA10TA2 PO; +POTA-165 PO
== END ==
LOC: M WHC 10:05
PROVIDERS: ATTEND Physician Assistant
DX: Z13.820 Encounter for screening for osteoporosis (principal); M85.89 Other specified disorders of bone density and structure, multiple sites

== ENCOUNTER → 2023-03-11 | Outpatient (REF) | payer OTHER ==
[2023-03-11 19:10] LABS: ALBUMIN 4.1 G/DL (3.2-5.2); ALKALINE PHOSPHATASE 65 U/L (46-116); ALT/SGPT 20 U/L (7.0-40); AST/SGOT 12 U/L (<34); BILIRUBIN,TOTAL 0.7 MG/DL (0.3-1.2); BLOOD UREA NITROGEN 16 MG/DL (9-23); CALCIUM LEVEL 9.3 MG/DL (8.5-10.1); CARBON DIOXIDE LEVEL 27 MMOL/L (20-31); CHLORIDE LEVEL 103 MMOL/L (98-107); CHOLESTEROL LEVEL 163 MG/DL (<200); CHOLESTEROL RISK RATIO 3.41 (<5); CREATININE FOR GFR 0.67 MG/DL (0.55-1.30); FREE T4 0.84 NG/DL (0.89-1.76); GLOMERULAR FILTRATION RATE > 60.0 (>58); GLUCOSE, FASTING 82 MG/DL (60-100); HDL CHOLESTEROL 47.8 MG/DL (>40); NON-HDL-C 115.2 MG/DL; POTASSIUM SERUM 4.3 MMOL/L (3.5-5.1); SODIUM LEVEL 137 MMOL/L (136-145); THYROID STIMULATING HORMONE 1.429 uIU/ML (0.55-4.78); TOTAL 25(OH) VITAMIN D 27.2 NG/ML (20.0-100.0); TOTAL PROTEIN 6.5 G/DL (5.7-8.2); TRIGLYCERIDES LEVEL 136 MG/DL (<150)
== END ==
LOC: M SFHCCLAY 11:51
PROVIDERS: ATTEND Nurse Practitioner Family
DX: Z00.00 Encounter for general adult medical examination without abnormal findings (principal); K51.90 Ulcerative colitis, unspecified, without complications; F41.8 Other specified anxiety disorders; R53.83 Other fatigue; G43.709 Chronic migraine without aura, not intractable, without status migrainosus; D56.3 Thalassemia minor; J30.9 Allergic rhinitis, unspecified; E78.5 Hyperlipidemia, unspecified; R79.89 Other specified abnormal findings of blood chemistry

== ENCOUNTER → 2023-03-11 | Outpatient (REF) | payer OTHER ==
[2023-03-11 18:43] LABS: BASO % 0.4 % (0.0-1.0); EOS # 0.1 10^3/uL (0.0-0.5); HEMATOCRIT 32.9 % (36.0-47.0); HEMOGLOBIN 10.1 g/dl (12.0-15.5); LYMPH # 2.2 10^3/uL (1.5-5.0); LYMPH % 31.9 % (24.0-44.0); MEAN CORPUSCULAR HEMOGLOBIN 20.1 pg (27.0-33.0); MEAN CORPUSCULAR HGB CONC 30.7 g/dl (32.0-36.5); MEAN CORPUSCULAR VOLUME 65.5 fl (80.0-96.0); MONO # 0.5 10^3/uL (0.0-0.8); MONO % 7.7 % (2.0-8.0); NEUTROPHILS % 58.6 % (36.0-66.0); PLATELET COUNT, AUTOMATED 228 10^3/uL (150-450); RED BLOOD COUNT 5.02 10^6/uL (4.00-5.40); WHITE BLOOD COUNT 6.9 10^3/uL (4.0-10.0)
[2023-03-11 19:00] LABS: BILIRUBIN,DIRECT 0.2 MG/DL (<0.4); BILIRUBIN,TOTAL 0.7 MG/DL (0.3-1.2); TOTAL PROTEIN 6.7 G/DL (5.7-8.2)
== END ==
LOC: M LABDRAWC 17:28
PROVIDERS: ATTEND Physician Assistant
DX: Z51.81 Encounter for therapeutic drug level monitoring (principal)

== ENCOUNTER → 2023-07-03 | Outpatient (REF) | payer OTHER ==
[~2023-07-03] MED LIST changes: -CEFD300C41 PO; +CEFD300C42 PO
[2023-07-03 13:38] LABS: BASO % 0.4 % (0.0-1.0); EOS # 0.1 10^3/uL (0.0-0.5); EOS % 1.2 % (0.0-3.0); HEMATOCRIT 33.3 % (36.0-47.0); HEMOGLOBIN 10.3 g/dl (12.0-15.5); LYMPH # 1.7 10^3/uL (1.5-5.0); LYMPH % 23.3 % (24.0-44.0); MEAN CORPUSCULAR HEMOGLOBIN 20.3 pg (27.0-33.0); MEAN CORPUSCULAR HGB CONC 30.9 g/dl (32.0-36.5); MEAN CORPUSCULAR VOLUME 65.6 fl (80.0-96.0); MONO # 0.5 10^3/uL (0.0-0.8); MONO % 6.2 % (2.0-8.0); NEUTROPHILS # 5.1 10^3/uL (1.5-8.5); NEUTROPHILS % 68.5 % (36.0-66.0); PLATELET COUNT, AUTOMATED 229 10^3/uL (150-450); RED BLOOD COUNT 5.08 10^6/uL (4.00-5.40); WHITE BLOOD COUNT 7.4 10^3/uL (4.0-10.0)
[2023-07-03 14:07] LABS: ALBUMIN 3.7 G/DL (3.2-5.2); BILIRUBIN,DIRECT 0.2 MG/DL (<0.4); BILIRUBIN,TOTAL 0.5 MG/DL (0.3-1.2); TOTAL PROTEIN 6.5 G/DL (5.7-8.2)
== END ==
LOC: M LABDRAWC 11:15
PROVIDERS: ATTEND Physician Assistant
DX: Z51.81 Encounter for therapeutic drug level monitoring (principal); K51.20 Ulcerative (chronic) proctitis without complications

== ENCOUNTER → 2023-10-09 | Outpatient (REF) | payer OTHER ==
[~2023-10-09] MED LIST changes: +CEFD1CAP9 PO; -CEFD300C42 PO
[2023-10-09 11:42] LABS: BASO % 0.3 % (0.0-1.0); EOS # 0.1 10^3/uL (0.0-0.5); EOS % 0.9 % (0.0-3.0); HEMATOCRIT 32.6 % (36.0-47.0); HEMOGLOBIN 10.2 g/dl (12.0-15.5); LYMPH # 1.5 10^3/uL (1.5-5.0); LYMPH % 22.3 % (24.0-44.0); MEAN CORPUSCULAR HEMOGLOBIN 20.5 pg (27.0-33.0); MEAN CORPUSCULAR HGB CONC 31.3 g/dl (32.0-36.5); MEAN CORPUSCULAR VOLUME 65.6 fl (80.0-96.0); MONO # 0.5 10^3/uL (0.0-0.8); MONO % 6.8 % (2.0-8.0); NEUTROPHILS # 4.6 10^3/uL (1.5-8.5); NEUTROPHILS % 69.4 % (36.0-66.0); PLATELET COUNT, AUTOMATED 201 10^3/uL (150-450); RED BLOOD COUNT 4.97 10^6/uL (4.00-5.40); WHITE BLOOD COUNT 6.6 10^3/uL (4.0-10.0)
[2023-10-09 12:11] LABS: ALBUMIN 3.6 G/DL (3.2-5.2); BILIRUBIN,DIRECT 0.2 MG/DL (<0.4); BILIRUBIN,TOTAL 0.6 MG/DL (0.3-1.2); TOTAL PROTEIN 6.6 G/DL (5.7-8.2)
== END ==
LOC: M LABDRAWC 11:13
PROVIDERS: ATTEND Physician Assistant
DX: Z51.81 Encounter for therapeutic drug level monitoring (principal); K51.20 Ulcerative (chronic) proctitis without complications

== ENCOUNTER → 2024-01-15 | Outpatient (REF) | payer OTHER ==
[2024-01-15 17:45] LABS: HEMATOCRIT 28.4 % (36.0-47.0); HEMOGLOBIN 8.9 g/dl (12.0-15.5); MEAN CORPUSCULAR HEMOGLOBIN 20.1 pg (27.0-33.0); MEAN CORPUSCULAR HGB CONC 31.3 g/dl (32.0-36.5); MEAN CORPUSCULAR VOLUME 64.1 fl (80.0-96.0); PLATELET COUNT, AUTOMATED 256 10^3/uL (150-450); RED BLOOD COUNT 4.43 10^6/uL (4.00-5.40); WHITE BLOOD COUNT 10.5 10^3/uL (4.0-10.0)
[2024-01-15 18:02] LABS: C REACTIVE PROTEIN QUANTITATIV 0.5 MG/DL (<1.0)
[2024-01-15 18:04] LABS: ALBUMIN 3.3 G/DL (3.2-5.2); BILIRUBIN,DIRECT 0.2 MG/DL (<0.4); BILIRUBIN,TOTAL 0.6 MG/DL (0.3-1.2); TOTAL PROTEIN 6.2 G/DL (5.7-8.2)
== END ==
LOC: M LABDRAWC 16:42
PROVIDERS: ATTEND Physician Assistant
DX: K51.20 Ulcerative (chronic) proctitis without complications (principal)

== ENCOUNTER → 2024-01-28 | Outpatient (REF) | payer OTHER ==
[2024-01-28 11:50] LABS: BASO % 0.4 % (0.0-1.0); EOS # 0.1 10^3/uL (0.0-0.5); EOS % 1.3 % (0.0-3.0); HEMATOCRIT 30.7 % (36.0-47.0); HEMOGLOBIN 9.4 g/dl (12.0-15.5); LYMPH # 1.8 10^3/uL (1.5-5.0); LYMPH % 26.8 % (24.0-44.0); MEAN CORPUSCULAR HGB CONC 30.6 g/dl (32.0-36.5); MEAN CORPUSCULAR VOLUME 65.5 fl (80.0-96.0); MONO # 0.5 10^3/uL (0.0-0.8); MONO % 7.5 % (2.0-8.0); NEUTROPHILS # 4.2 10^3/uL (1.5-8.5); NEUTROPHILS % 63.1 % (36.0-66.0); PLATELET COUNT, AUTOMATED 227 10^3/uL (150-450); RED BLOOD COUNT 4.69 10^6/uL (4.00-5.40); WHITE BLOOD COUNT 6.7 10^3/uL (4.0-10.0)
[2024-01-28 12:19] LABS: IRON (FE) 68 UG/DL (50-170); TOTAL IRON BINDING CAPACITY 309 UG/DL (250-425)
[2024-01-28 12:22] LABS: FERRITIN 34.5 NG/ML (7.3-270.7); FOLATE > 24.00 NG/ML (>5.4)
[2024-01-28 12:24] LABS: VITAMIN B12 LEVEL 569 PG/ML (211-911)
== END ==
LOC: M LABDRAWC 10:47
PROVIDERS: ATTEND Physician Assistant
DX: K51.20 Ulcerative (chronic) proctitis without complications (principal)

== ENCOUNTER → 2024-03-15 | Outpatient (REF) | payer OTHER ==
[~2024-03-15] MED LIST changes: +ONDA-282; -ONDA4TAB6
[2024-03-15 18:23] LABS: BASO % 0.3 % (0.0-1.0); EOS # 0.1 10^3/uL (0.0-0.5); EOS % 0.9 % (0.0-3.0); HEMATOCRIT 35.3 % (36.0-47.0); HEMOGLOBIN 10.9 g/dl (12.0-15.5); LYMPH # 2.1 10^3/uL (1.5-5.0); MEAN CORPUSCULAR HEMOGLOBIN 20.3 pg (27.0-33.0); MEAN CORPUSCULAR HGB CONC 30.9 g/dl (32.0-36.5); MEAN CORPUSCULAR VOLUME 65.9 fl (80.0-96.0); MONO # 0.6 10^3/uL (0.0-0.8); MONO % 7.6 % (2.0-8.0); NEUTROPHILS # 4.7 10^3/uL (1.5-8.5); NEUTROPHILS % 62.9 % (36.0-66.0); PLATELET COUNT, AUTOMATED 229 10^3/uL (150-450); RED BLOOD COUNT 5.36 10^6/uL (4.00-5.40); WHITE BLOOD COUNT 7.5 10^3/uL (4.0-10.0)
[2024-03-15 18:46] LABS: THYROID STIMULATING HORMONE 1.634 uIU/ML (0.55-4.78); TOTAL 25(OH) VITAMIN D 32.4 NG/ML (20.0-100.0)
[2024-03-15 18:50] LABS: FREE T4 0.93 NG/DL (0.89-1.76)
[2024-03-15 18:53] LABS: IRON (FE) 78 UG/DL (50-170)
[2024-03-15 18:54] LABS: ALBUMIN 3.9 G/DL (3.2-5.2); ALKALINE PHOSPHATASE 86 U/L (46-116); ALT/SGPT 15 U/L (7.0-40); AST/SGOT 10 U/L (<34); BILIRUBIN,TOTAL 0.6 MG/DL (0.3-1.2); BLOOD UREA NITROGEN 15 MG/DL (9-23); CARBON DIOXIDE LEVEL 28 MMOL/L (20-31); CHLORIDE LEVEL 106 MMOL/L (98-107); CHOLESTEROL LEVEL 182 MG/DL (<200); CHOLESTEROL RISK RATIO 3.83 (<5); CREATININE FOR GFR 0.69 MG/DL (0.55-1.30); GLOMERULAR FILTRATION RATE > 60.0 (>58); GLUCOSE, FASTING 86 MG/DL (60-100); HDL CHOLESTEROL 47.5 MG/DL (>40); LDL CHOLESTEROL 113.5 MG/DL (<100); MAGNESIUM LEVEL 2.2 MG/DL (1.8-2.4); NON-HDL-C 134.5 MG/DL; PERCENT SATURATION 24.4 % (13.2-45.0); POTASSIUM SERUM 4.8 MMOL/L (3.5-5.1); SODIUM LEVEL 138 MMOL/L (136-145); TOTAL IRON BINDING CAPACITY 320 UG/DL (250-425); TOTAL PROTEIN 6.6 G/DL (5.7-8.2); TRIGLYCERIDES LEVEL 105 MG/DL (<150)
== END ==
LOC: M SFHCCLAY 10:45
PROVIDERS: ATTEND Nurse Practitioner Family
DX: R53.83 Other fatigue (principal); Z00.00 Encounter for general adult medical examination without abnormal findings; K51.90 Ulcerative colitis, unspecified, without complications; F41.8 Other specified anxiety disorders; G43.709 Chronic migraine without aura, not intractable, without status migrainosus; D56.3 Thalassemia minor; J30.9 Allergic rhinitis, unspecified; E78.5 Hyperlipidemia, unspecified; R79.89 Other specified abnormal findings of blood chemistry; K52.9 Noninfective gastroenteritis and colitis, unspecified

== ENCOUNTER → 2024-05-05 | Outpatient (REF) | payer OTHER | LOC: M LABDRAWC 17:02 | PROVIDERS: ATTEND Physician Assistant | DX: K51.90 Ulcerative colitis, unspecified, without complications (principal) ==

== ENCOUNTER → 2024-05-27 | Outpatient (REF) | payer OTHER ==
[2024-05-27 11:48] LABS: BASO % 0.3 % (0.0-1.0); EOS # 0.1 10^3/uL (0.0-0.5); EOS % 0.9 % (0.0-3.0); HEMATOCRIT 34.3 % (36.0-47.0); HEMOGLOBIN 10.5 g/dl (12.0-15.5); LYMPH # 1.6 10^3/uL (1.5-5.0); LYMPH % 23.8 % (24.0-44.0); MEAN CORPUSCULAR HGB CONC 30.6 g/dl (32.0-36.5); MEAN CORPUSCULAR VOLUME 65.2 fl (80.0-96.0); MONO # 0.5 10^3/uL (0.0-0.8); MONO % 7.6 % (2.0-8.0); NEUTROPHILS # 4.4 10^3/uL (1.5-8.5); NEUTROPHILS % 67.1 % (36.0-66.0); PLATELET COUNT, AUTOMATED 233 10^3/uL (150-450); RED BLOOD COUNT 5.26 10^6/uL (4.00-5.40); WHITE BLOOD COUNT 6.6 10^3/uL (4.0-10.0)
[2024-05-27 12:20] LABS: ALBUMIN 3.8 G/DL (3.2-5.2); BILIRUBIN,DIRECT 0.2 MG/DL (<0.4); BILIRUBIN,TOTAL 0.6 MG/DL (0.3-1.2); TOTAL PROTEIN 6.7 G/DL (5.7-8.2)
== END ==
LOC: M LABDRAWC 10:51
PROVIDERS: ATTEND Physician Assistant
DX: K51.20 Ulcerative (chronic) proctitis without complications (principal)

== ENCOUNTER → 2025-03-08 | Outpatient (REF) | payer OTHER ==
[2025-03-08 18:43] LABS: ALT/SGPT 16 U/L (7.0-40); AST/SGOT 16 U/L (<34); IRON (FE) 94 UG/DL (50-170); PERCENT SATURATION 30.6 % (13.2-45.0)
[2025-03-08 18:48] LABS: PLATELET COUNT, AUTOMATED 287 10^3/uL (150-450)
[2025-03-08 18:53] LABS: ERYTHROCYTE SEDIMENTATION RATE 20 mm/hr (0-20)
[2025-03-08 19:19] LABS: C REACTIVE PROTEIN QUANTITATIV < 0.50 MG/DL (<1.0)
== END ==
LOC: M LABDRAWC 17:26
PROVIDERS: ATTEND Internal Medicine Gastroenterology
DX: K51.20 Ulcerative (chronic) proctitis without complications (principal)

== ENCOUNTER → 2025-03-08 | Outpatient (REF) | payer OTHER ==
[2025-03-08 18:45] LABS: ALT/SGPT 16 U/L (7.0-40); AST/SGOT 15 U/L (<34); CALCIUM LEVEL 8.6 MG/DL (8.5-10.1); CARBON DIOXIDE LEVEL 26 MMOL/L (20-31); CHLORIDE LEVEL 103 MMOL/L (98-107); CHOLESTEROL LEVEL 154 MG/DL (<200); CHOLESTEROL RISK RATIO 4.08 (<5); CREATININE FOR GFR 0.71 MG/DL (0.55-1.30); FREE T4 0.85 NG/DL (0.89-1.76); GLOMERULAR FILTRATION RATE > 90.0 (>58); LDL CHOLESTEROL 86.3 MG/DL (<100); MAGNESIUM LEVEL 2.2 MG/DL (1.8-2.4); NON-HDL-C 116.3 MG/DL; POTASSIUM SERUM 4.7 MMOL/L (3.5-5.1); SODIUM LEVEL 140 MMOL/L (136-145); TRIGLYCERIDES LEVEL 150 MG/DL (<150)
[2025-03-08 18:46] LABS: BASO # 0.0 10^3/uL (0.0-0.2); BASO % 0.3 % (0.0-1.0); EOS # 0.1 10^3/uL (0.0-0.5); EOS % 1.7 % (0.0-3.0); LYMPH # 1.9 10^3/uL (1.5-5.0); LYMPH % 29.0 % (24.0-44.0); MONO # 0.5 10^3/uL (0.0-0.8); MONO % 8.2 % (2.0-8.0); NEUTROPHILS # 4.0 10^3/uL (1.5-8.5); NEUTROPHILS % 60.3 % (36.0-66.0); PLATELET COUNT, AUTOMATED 262 10^3/uL (150-450); TOTAL 25(OH) VITAMIN D 37.3 NG/ML (20.0-100.0)
== END ==
LOC: M SFHCCLAY 09:46
PROVIDERS: ATTEND Nurse Practitioner Family
DX: Z00.00 Encounter for general adult medical examination without abnormal findings (principal); K51.90 Ulcerative colitis, unspecified, without complications; F41.8 Other specified anxiety disorders; G43.709 Chronic migraine without aura, not intractable, without status migrainosus; D56.3 Thalassemia minor; J30.9 Allergic rhinitis, unspecified; E78.5 Hyperlipidemia, unspecified; R79.89 Other specified abnormal findings of blood chemistry

== ENCOUNTER → 2025-05-11 | Outpatient (REF) | payer OTHER ==
[2025-05-11 13:10] LABS: FREE T4 0.92 NG/DL (0.89-1.76)
== END ==
LOC: M SFHCCLAY 07:43
PROVIDERS: ATTEND Nurse Practitioner Family
DX: E03.8 Other specified hypothyroidism (principal)

== ENCOUNTER → 2025-05-11 | Outpatient (REF) | payer OTHER | LOC: M LABDRAWC 12:54 | PROVIDERS: ATTEND Internal Medicine Gastroenterology | DX: K51.20 Ulcerative (chronic) proctitis without complications (principal); Z79.899 Other long term (current) drug therapy ==

== ENCOUNTER → 2025-08-29 | Outpatient (REF) | payer OTHER ==
[2025-08-29 18:30] LABS: FREE T4 1.12 NG/DL (0.89-1.76)
== END ==
LOC: M SFHCCLAY 12:16
PROVIDERS: ATTEND Nurse Practitioner Family
DX: E03.8 Other specified hypothyroidism (principal)